=== PATIENT | female | born 1950 | race Hispanic/Latino ===

== ENCOUNTER → 2017-08-16 | Outpatient (CLI) | payer OTHER | END | disposition home or self-care (01) | LOC: RAH 08:02 | PROVIDERS: ATTEND Family Medicine | DX: Z12.31 Encounter for screening mammogram for malignant neoplasm of breast (principal) | CPT/HCPCS: 77067 ==

== ENCOUNTER → 2021-07-22 | Outpatient (CLI) | payer MEDICARE, OTHER | END | disposition home or self-care (01) | LOC: SHCH 08:18 | PROVIDERS: ATTEND Internal Medicine Cardiovascular Disease | DX: R07.9 Chest pain, unspecified (principal) | CPT/HCPCS: 93306 ==

== ENCOUNTER → 2022-06-01 | Outpatient (CLI) | payer MEDICARE ==
[2022-06-01 16:27] LABS: POTASSIUM 4.4 mmol/L (3.5-5.1)
== END | disposition home or self-care (01) ==
LOC: LAB 10:49
PROVIDERS: ATTEND Internal Medicine Cardiovascular Disease
DX: I10 Essential (primary) hypertension (principal); Z82.49 Family history of ischemic heart disease and other diseases of the circulatory system
CPT/HCPCS: 36415; 80048

== ENCOUNTER → 2022-06-08 | Outpatient (CLI) | payer MEDICARE ==
[~2022-06-08] MED LIST: IOHEXOL 350 MG/ML 100ML INFUS..BTL IV ONE
== END | disposition home or self-care (01) ==
LOC: RAH 07:53
PROVIDERS: ATTEND Internal Medicine Cardiovascular Disease
DX: I10 Essential (primary) hypertension (principal); R07.9 Chest pain, unspecified
CPT/HCPCS: 75574; Q9967

== ENCOUNTER → 2022-09-29 | Outpatient (CLI) | payer MEDICARE | END | disposition home or self-care (01) | LOC: SHCH 14:02 | PROVIDERS: ATTEND Internal Medicine Cardiovascular Disease | DX: I70.203 Unspecified atherosclerosis of native arteries of extremities, bilateral legs (principal); I87.2 Venous insufficiency (chronic) (peripheral) | CPT/HCPCS: 93925; 93970 ==

== ENCOUNTER 2022-11-15 12:28 | Emergency (ER) | payer MEDICARE ==
[~2022-11-15] VITALS: Ht 147.3 cm; Wt 56.2 kg
[2022-11-15 13:18] LABS: APPEARANCE,URINE CLEAR (CLEAR); BILIRUBIN,URINE NEGATIVE (NEGATIVE); COLOR,URINE COLORLESS (YELLOW); GLUCOSE, URINE (UA) NEGATIVE (NEGATIVE); KETONES,URINE NEGATIVE (NEGATIVE); LEUKOCYTE ESTERASE ,URINE NEGATIVE Leu/uL (NEGATIVE); NITRATE,URINE NEGATIVE (NEGATIVE); OCCULT BLOOD,URINE NEGATIVE (NEGATIVE); PH,URINE 7.5 (5.0-8.0); PROTEIN,URINE NEGATIVE (NEGATIVE); UROBILINOGEN,URINE 0.2 mg/dL (0.2-1.0)
[2022-11-15] MEDS ORDERED: ALBU90AE2 IH (14:01)
[2022-11-15] MEDS ORDERED: BENZ200C53 PO (14:01)
[2022-11-15 14:33] VITALS: BP 157/88
== END 2022-11-15 14:37 | disposition home or self-care (01) ==
LOC: EDH 12:28
DX: R06.00 Dyspnea, unspecified (principal); U09.9 Post COVID-19 condition, unspecified; Z88.1 Allergy status to other antibiotic agents; Z20.822 Contact with and (suspected) exposure to COVID-19
CPT/HCPCS: 99285; 71045; 87635; 87880; 87804 ×2; 81003; 93005; C9803

== ENCOUNTER 2023-08-20 05:53 | Observation (INO) | payer MEDICARE ==
[~2023-08-20] VITALS: Ht 149.9 cm; Wt 56.7 kg
[~2023-08-20 05:53] MED LIST changes: +ALBU90AE2 IH; +BENZ200C53 PO; -IOHEXOL 350 MG/ML 100ML INFUS..BTL IV ONE
[2023-08-20 06:23] LABS: HEMATOCRIT 45.6 % (36-48); MEAN CORPUSCULAR HEMOGLOBIN 30.7 pg (27.0-33.0); MEAN CORPUSCULAR HGB CONC 32.2 g/dL (32.0-36.0); MEAN CORPUSCULAR VOLUME 95.2 fL (79-99); NEUTROPHILS % (AUTO) 49.6 % (40.0-77.0); PLATELET COUNT (AUTO) 292 K/uL (130-400); RED BLOOD CELL COUNT(AUTO) 4.79 MIL/uL (4.00-5.50); WHITE BLOOD COUNT (AUTO) 8.7 K/uL (4.8-10.8)
[2023-08-20 06:24] LABS: BASOPHILS # (AUTO) 0.04 K/uL (0.00-0.20); BASOPHILS % (AUTO) 0.5 % (0.0-5.0); EOSINOPHILS # (AUTO) 0.33 K/uL (0.00-0.70); EOSINOPHILS % (AUTO) 3.8 % (0.0-8.0); IMMATURE GRANULOCYTE ABSOLUTE 0.04 K/uL (0-1); LYMPHOCYTES # (AUTO) 3.2 K/uL (1.0-4.8); LYMPHOCYTES % (AUTO) 36.2 % (21.0-51.0); MONOCYTES # (AUTO) 0.8 K/uL (0.1-1.0); MONOCYTES % (AUTO) 9.4 % (3.0-13.0); NEUTROPHILS # (AUTO) 4.3 K/uL (1.8-7.7)
[2023-08-20 06:44] LABS: INR <= 0.93 (0.85-1.15); PROTHROMBIN TIME 10.4 SEC (9.6-11.6)
[2023-08-20 07:08] LABS: ALBUMIN 3.5 g/dL (3.5-5.0); BILIRUBIN,TOTAL 0.2 mg/dL (0.2-1.0); CREATININE 0.9 mg/dL (0.5-1.0); POTASSIUM 4.7 mmol/L (3.5-5.1); TOTAL PROTEIN, SERUM 7.3 g/dL (6.0-8.3)
[2023-08-20 07:14] LABS: B-TYPE NATRIURETIC PEPTIDE 42 pg/mL (0-100)
[2023-08-20 07:21] LABS: APPEARANCE,URINE CLEAR (CLEAR); BILIRUBIN,URINE NEGATIVE (NEGATIVE); COLOR,URINE COLORLESS (YELLOW); GLUCOSE, URINE (UA) NEGATIVE (NEGATIVE); KETONES,URINE NEGATIVE (NEGATIVE); LEUKOCYTE ESTERASE ,URINE NEGATIVE Leu/uL (NEGATIVE); NITRATE,URINE NEGATIVE (NEGATIVE); OCCULT BLOOD,URINE NEGATIVE (NEGATIVE); PROTEIN,URINE NEGATIVE (NEGATIVE); UROBILINOGEN,URINE 0.2 mg/dL (0.2-1.0)
[2023-08-20 07:26] LABS: ADD UA MICROSCOPIC NO
[2023-08-20] MEDS ORDERED: LEVO25CA4 PO (08:50)
[2023-08-20] MEDS ORDERED: HYDR-4068 PO (08:50)
[2023-08-20] MEDS ORDERED: LIDO700A30 TP (08:50)
[2023-08-20] MEDS ORDERED: LACTULOSE 20 GM/30 ML UDCUP PO PRN (10:30)
[2023-08-20] MEDS ORDERED: NITROGLYCERIN 0.4 MG SL TAB SL PRN (10:30)
[2023-08-20] MEDS ORDERED: LOPERAMIDE HCL 2 MG CAP PO PRN (10:30)
[2023-08-20] MEDS ORDERED: ALBUTEROL 0.083% 2.5 MG/3 ML INH IH PRN (10:30)
[2023-08-20] MEDS ORDERED: POLYETHYLENE GLYCOL 3350 17 GM POWD.PACK PO PRN (10:30)
[2023-08-20] MEDS ORDERED: GUAIFENESIN SUGAR-FREE 100 MG/5 ML UDCUP PO PRN (10:30)
[2023-08-20] MEDS ORDERED: ACETAMINOPHEN 325 MG TAB PO PRN ×2 (10:30)
[2023-08-20] MEDS ORDERED: ARTIFICAL TEARS SOL 15 ML OP PRN (10:30)
[2023-08-20] MEDS ORDERED: DIPHENHYDRAMINE HCL 25 MG CAPSULE PO PRN (10:30)
[2023-08-20] MEDS ORDERED: BENZOCAINE/MENTH/CETYLPYRD CL 1 EACH LOZENGE MM PRN (10:30)
[2023-08-20] MEDS ORDERED: ONDANSETRON 4MG INJ IV PRN (10:30)
[2023-08-20] MEDS ORDERED: ALPRAZOLAM 0.5 MG TABLET PO PRN (10:30)
[2023-08-20] MEDS ORDERED: DOCUSATE SODIUM 100 MG CAP PO PRN (10:30)
[2023-08-20] MEDS ORDERED: MAG/ALUM/SIMETH 30 ML UDCUP PO PRN (10:30)
[2023-08-20] MEDS ORDERED: HYDRALAZINE 25MG TABLET PO PRN (10:30)
[2023-08-20] MEDS ORDERED: LIDOCAINE 5% TOPICAL PATCH TP PRN (11:00)
[2023-08-20 11:23] LABS: CREATINE KINASE, TOTAL 79 U/L (21-232)
[2023-08-20] MEDS ORDERED: TIMO1DRO9 OP (12:00)
[2023-08-20] MEDS ORDERED: CYCL1DRO14 OP (12:00)
[2023-08-20 13:57] VITALS: PULSE 66; RESP 18; O2SAT 96
[2023-08-20] MEDS ORDERED: LABETALOL 20MG VIAL IV PRN (14:00)
[2023-08-20] MEDS ORDERED: HYDRALAZINE 20MG/ML VIAL IV PRN (14:00)
[2023-08-20] MEDS: KETOROLAC 15MG/ML VIAL (15MG/ML) IM SCH (14:11)
[2023-08-20 14:20] VITALS: O2SAT 99
[2023-08-20 16:00] VITALS: BP 117/74; PULSE 91; RESP 17
[2023-08-20] MEDS ORDERED: IOHEXOL 350 MG/ML 100ML INFUS..BTL IV ONE (17:09)
[2023-08-20 18:54] LABS: CREATINE KINASE, TOTAL 60 U/L (21-232)
[2023-08-20 20:00] VITALS: O2SAT 98
[2023-08-20 20:25] VITALS: BP 112/68; PULSE 65; RESP 16
[2023-08-20] MEDS: HYDROCODONE/ACETAMINOPHEN 10/325 MG TAB PO SCH (21:00)
[2023-08-20] MEDS: FAMOTIDINE 20MG TAB PO SCH (21:22)
[2023-08-20] MEDS: LOSARTAN 50 MG TABLET PO SCH (21:23)
[2023-08-20] MEDS: ZOLPIDEM TARTRATE 5 MG TAB PO PRN (21:28)
[2023-08-20 23:30] VITALS: BP 93/54; PULSE 58; RESP 16
[2023-08-21 03:47] LABS: HEMATOCRIT 37.3 % (36-48); MEAN CORPUSCULAR HEMOGLOBIN 31.4 pg (27.0-33.0); MEAN CORPUSCULAR HGB CONC 33.2 g/dL (32.0-36.0); MEAN CORPUSCULAR VOLUME 94.4 fL (79-99); RED BLOOD CELL COUNT(AUTO) 3.95 MIL/uL (4.00-5.50); RED CELL DISTRIBUTION WIDTH 13.2 % (11.0-15.5); WHITE BLOOD COUNT (AUTO) 9.4 K/uL (4.8-10.8)
[2023-08-21 03:56] LABS: CREATININE 0.8 mg/dL (0.5-1.0); POTASSIUM 4.2 mmol/L (3.5-5.1)
[2023-08-21 04:03] LABS: HEMOGLOBIN A1C 5.8 % (4.0-6.0)
[2023-08-21 04:08] VITALS: BP 98/59; PULSE 62; RESP 16
[2023-08-21 04:09] LABS: MAGNESIUM 2.1 mg/dL (1.80-2.40); PHOSPHORUS 4.5 mg/dL (2.5-4.9); THYROID STIMULATING HORMONE 1.2 uIU/mL (0.36-3.74)
[2023-08-21] MEDS: LEVOTHYROXINE 25 MCG TABLET PO SCH (05:50)
[2023-08-21 08:00] VITALS: BP 135/84; PULSE 87; RESP 16
[2023-08-21] MEDS: ENOXAPARIN SODIUM 40 MG/0.4 ML SYRINGE SQ SCH (09:51)
[2023-08-21] MEDS: LOSARTAN 25 MG TABLET PO ONE (10:44)
[2023-08-21 11:02] LABS: APPEARANCE,URINE CLOUDY (CLEAR); BILIRUBIN,URINE NEGATIVE (NEGATIVE); COLOR,URINE COLORLESS (YELLOW); GLUCOSE, URINE (UA) NEGATIVE (NEGATIVE); KETONES,URINE NEGATIVE (NEGATIVE); LEUKOCYTE ESTERASE ,URINE 500 Leu/uL (NEGATIVE); NITRATE,URINE NEGATIVE (NEGATIVE); OCCULT BLOOD,URINE LARGE (NEGATIVE); PROTEIN,URINE NEGATIVE (NEGATIVE); UROBILINOGEN,URINE 0.2 mg/dL (0.2-1.0)
[2023-08-21 11:14] LABS: ADD UA MICROSCOPIC YES
[2023-08-21 11:18] LABS: BACTERIA,URINE RARE /HPF (None Seen); MUCUS,URINE RARE LPF (None Seen); RBC,URINE 0-1 /HPF (0-1); TRANSITIONAL EPI CELLS,URINE RARE /HPF (None Seen); WBC CLUMP MOD /HPF (0-1); WBC,URINE TNTC /HPF (0-1)
[2023-08-21 11:59] VITALS: BP 137/52; PULSE 57; RESP 15
[2023-08-21 12:00] VITALS: BP 137/52; PULSE 57; RESP 15
[2023-08-21 13:30] VITALS: O2SAT 98
[2023-08-21] MEDS ORDERED: CEPH500C2 PO (13:36)
[2023-08-21] MEDS ORDERED: LOSA-417 PO (13:38)
[2023-08-21] MEDS ORDERED: LOSARTAN 25 MG TABLET PO SCH (21:00)
== END 2023-08-21 15:45 | disposition home or self-care (01) ==
LOC: EDH 05:53 → EDHIP 10:27 → 4DH 14:20
PROVIDERS: ADMIT Internal Medicine Critical Care Medicine; ATTEND Internal Medicine Critical Care Medicine
DX: I16.1 Hypertensive emergency (principal); R07.89 Other chest pain; M41.9 Scoliosis, unspecified; G89.29 Other chronic pain; M54.9 Dorsalgia, unspecified; K57.92 Diverticulitis of intestine, part unspecified, without perforation or abscess without bleeding; M19.90 Unspecified osteoarthritis, unspecified site; I71.21 Aneurysm of the ascending aorta, without rupture; Z88.1 Allergy status to other antibiotic agents; Z90.710 Acquired absence of both cervix and uterus; Z90.49 Acquired absence of other specified parts of digestive tract; Z86.2 Personal history of diseases of the blood and blood-forming organs and certain disorders involving the immune mechanism; Z79.899 Other long term (current) drug therapy
CPT/HCPCS: 96372 ×3; 99285; 82550 ×4; 84484 ×4; 80053; 83880; 85025; 85378; 85610; 85730; 81003; 36415 ×2; 71045; 71270; 93005 ×2; 83036; 84443; 83735; 84100; 80048; 85027; 87077; 87088; 87186; 81001; 93306; 97161; 84145; G0378 ×29; J1885 ×4; Q9967; J1650

== ENCOUNTER → 2024-03-28 | Outpatient (CLI) | payer MEDICARE ==
[~2024-03-28] MED LIST changes: -ALBU90AE2 IH; -BENZ200C53 PO; +CEPH500C2 PO; +CYCL1DRO14 OP; +HYDR-4068 PO; +LEVO25CA4 PO; +LIDO700A30 TP; +LOSA-417 PO; +TIMO1DRO9 OP
--- NOTE | 2024-03-28 11:20 | HMCIMG ---
CHEST 2VWS HISTORY: Shortness of breath COMPARISON: 08/20/2023 FINDINGS: Frontal and lateral projections of the chest were obtained. There is no acute pulmonary infiltrates or failure. The heart is not enlarged. No evidence of aortic calcification is seen. There is dextroscoliosis. Degenerative changes are seen of the thoracolumbar spine. IMPRESSION: 1. No acute pulmonary infiltrates.
== END | disposition home or self-care (01) ==
LOC: RAH 10:28
PROVIDERS: ATTEND Family Medicine
DX: R06.02 Shortness of breath (principal); M47.815 Spondylosis without myelopathy or radiculopathy, thoracolumbar region; M41.84 Other forms of scoliosis, thoracic region
CPT/HCPCS: 71046

== ENCOUNTER 2024-04-03 11:38 | Emergency (ER) | payer MEDICARE ==
[~2024-04-03] VITALS: Ht 147.3 cm; Wt 59.0 kg
--- NOTE | 2024-04-03 12:02 | EKG ---
[facility] Test Date: 2024-04-03 Test Time: 11:57:26 Pat Name: NELLIE HOU Department: ED Room: Gender: F Design Consultant: [id number] : 1950 Requested By: MARLEY LOPEZ Order Number: [id number] Reading MD: Richar Albarado Measurements Intervals [place] Rate: 75 P: 59 SD: 164 QRS: -16 QRSD: 79 T: 71 QT: 383 QTc: 429 Interpretive Statements Sinus rhythm Compared to ECG 08/20/2023 10:34:24 No significant changes Electronically Signed On 04-04-2024 19:31:55 CASE SUPERVISOR by Richar Albarado Please click the below link to view image of tracing.
[2024-04-03 12:25] LABS: APPEARANCE,URINE CLEAR (CLEAR); BILIRUBIN,URINE NEGATIVE (NEGATIVE); COLOR,URINE COLORLESS (YELLOW); GLUCOSE, URINE (UA) NEGATIVE (NEGATIVE); KETONES,URINE NEGATIVE (NEGATIVE); LEUKOCYTE ESTERASE ,URINE NEGATIVE Leu/uL (NEGATIVE); NITRATE,URINE NEGATIVE (NEGATIVE); OCCULT BLOOD,URINE NEGATIVE (NEGATIVE); PROTEIN,URINE NEGATIVE (NEGATIVE); UROBILINOGEN,URINE 0.2 mg/dL (0.2-1.0)
[2024-04-03 12:25] LABS: BASOPHILS # (AUTO) 0.04 K/uL (0.00-0.20); BASOPHILS % (AUTO) 0.4 % (0.0-5.0); EOSINOPHILS % (AUTO) 1.9 % (0.0-8.0); HEMATOCRIT 43.7 % (36-48); IMMATURE GRANULOCYTE ABSOLUTE 0.05 K/uL (0-1); LYMPHOCYTES # (AUTO) 2.1 K/uL (1.0-4.8); LYMPHOCYTES % (AUTO) 19.5 % (21.0-51.0); MEAN CORPUSCULAR HEMOGLOBIN 30.6 pg (27.0-33.0); MEAN CORPUSCULAR VOLUME 95.6 fL (79-99); MONOCYTES # (AUTO) 0.8 K/uL (0.1-1.0); MONOCYTES % (AUTO) 7.5 % (3.0-13.0); NEUTROPHILS # (AUTO) 7.5 K/uL (1.8-7.7); NEUTROPHILS % (AUTO) 70.2 % (40.0-77.0); PLATELET COUNT (AUTO) 291 K/uL (130-400); RED BLOOD CELL COUNT(AUTO) 4.57 MIL/uL (4.00-5.50); RED CELL DISTRIBUTION WIDTH 12.7 % (11.0-15.5); WHITE BLOOD COUNT (AUTO) 10.6 K/uL (4.8-10.8)
[2024-04-03 12:30] LABS: CREATININE 0.9 mg/dL (0.5-1.0); POTASSIUM 4.1 mmol/L (3.5-5.1)
[2024-04-03 12:31] LABS: ADD UA MICROSCOPIC NO
[2024-04-03 12:46] LABS: B-TYPE NATRIURETIC PEPTIDE 40 pg/mL (0-100)
[2024-04-03 12:52] VITALS: O2SAT 97
--- NOTE | 2024-04-03 13:33 | HMCIMG ---
CT CERVICAL SPINE W/O CONTRAST REASON: headache s/p fall COMPARISON: None TECHNIQUE: Images are obtained from skull base to the upper thoracic spine in the axial plane. Sagittal and coronal reconstruction images were then performed. FINDINGS: There are normal appearing vertebral bodies. There is severe degenerative narrowing at C4-5, 5 6 and C6-7. There is reversal of normal curvature. There is 3 mm anterior subluxation of C3 on C4. Alignment appears otherwise unremarkable. There are mild degenerative changes in the facets. Central spinal canal appears preserved. There is no evidence of stenosis. Stranding soft tissues appear unremarkable. There is no evidence of fracture or subluxation. Soft tissues appear normal as well. IMPRESSION: 1. Severe spondylosis at C4-5, C5-6 and C6-[address] was performed with one or more following dose reduction techniques: automated exposure control, adjustment of the mA and kv according to patient's size, or use of a iterative reconstruction technique.
--- NOTE | 2024-04-03 13:33 | HMCIMG ---
Exam: NONCONTRAST CT BRAIN REASON: headache s/p fall. COMPARISON: None. TECHNIQUE: Images are obtained from vertex to the skull base. The exam was performed without IV contrast. FINDINGS: There is normal appearing brain parenchyma. There are no focal mass lesions. There is is no evidence of intracranial hemorrhage or acute stroke. Ventricles and sulci appear normal. Posterior fossa and brainstem structures are unremarkable. Paranasal sinuses and remaining extracranial soft tissues appear normal as well. IMPRESSION: 1. Normal noncontrast CT brain. CT was performed with one or more following dose reduction techniques: automated exposure control, adjustment of the mA and kv according to patient's size, or use of a iterative reconstruction technique.
[2024-04-03] MEDS: ondanSETRON 4MG INJ IVP ONE (13:39)
[2024-04-03] MEDS: morPHINE 2 MG SYG IVP ONE (13:39)
[2024-04-03 14:18] VITALS: BP 149/80; PULSE 82; RESP 20; TEMP 97.5
--- NOTE | 2024-04-03 14:23 | HMCIMG ---
ELBOW COMP 3+VWS LT REASON: pain/ mechanical ground level fall TECHNIQUE: 3 views were obtained. FINDINGS: There is irregularity of the neck of the radius which may represent a nondisplaced fracture. There is a positive joint effusion with anterior and posterior fat-pad sign. Distal humerus appears intact as does the ulna. IMPRESSION: 1. Nondisplaced fracture proximal radius with positive joint effusion.
--- NOTE | 2024-04-03 14:24 | HMCIMG ---
SHOULDER COMP 2+VWS LT REASON: pain/ mechanical ground level fall TECHNIQUE: 3 views were obtained. FINDINGS: There is no evidence of fracture or dislocation. There is no joint effusion. The soft tissues appear unremarkable. There is no evidence of a radiopaque foreign body. IMPRESSION: No acute findings.
--- NOTE | 2024-04-03 14:25 | HMCIMG ---
HUMERUS 2+VWS LT REASON: pain/ mechanical ground level fall TECHNIQUE: 2 views were obtained. FINDINGS: There is no evidence of fracture or dislocation. There is no joint effusion. The soft tissues appear unremarkable. There is no evidence of a radiopaque foreign body. IMPRESSION: No acute findings.
--- NOTE | 2024-04-03 14:48 | ERN ---
General Chief Complaint: Mechanical Fall Stated Complaint: FALL,HURT LT ARM Time Seen by MD: 11:43 Time Seen by Midlevel: 11:43 Source: patient History of Present Illness Initial Comments Patient is a 73-year-old female presenting to the emergency department following a mechanical ground level fall. Patient states she accidentally slipped and fell onto her left side. She does report hitting the left occipital part of her head and reports a headache. She has pain to her left shoulder left upper arm and left elbow. Denies any loss of consciousness. Denies being on blood thinners. Denies any other symptoms at this time. Allergies: Coded Allergies: levofloxacin (Unverified Allergy, Unknown, 08/20/23) Home Meds Active Scripts Losartan Potassium (Cozaar) 25 Mg Tablet, 25 MG PO BID for 30 Days, #60 TAB Prov:LOLIS KEITH N ROOFING APPLICATOR 08/21/23 Cephalexin (Cephalexin) 500 Mg Capsule, 500 MG PO BID for 7 Days, #14 CAP Prov:LOLIS KEITH N ROOFING APPLICATOR 08/21/23 Reported Medications Timolol Maleate/Pf (Timolol Maleate 0.5% Eye Drop) 0.5 % Droperette, 1 EACH OP HS, DROP 08/20/23 Cyclosporine (Cyclosporine) 0.05 % Droperette, 1 EACH OP BID, DROP 08/20/23 Lidocaine (Lidocaine) 5 % Adh..patch, 1 EACH TP [id number] PRN for PAIN LEVEL 1 TO 5, ADH.PATCH 08/20/23 Hydrocodone/Acetaminophen (Hydrocodon-Acetaminophn 10-325) 10 Mg-325 Mg Tablet, 1 EACH PO BID, TAB 08/20/23 Levothyroxine Sodium (Levothyroxine) 25 Mcg Capsule, 25 MCG PO DAILY, CAP 08/20/23 Past Medical History Past Medical History: Arthritis Medical History Other: SCOLIOSIS, CHRONIC NECK PAIN Past Surgical History: Appendectomy, Hysterectomy, Cholecystectomy, Other Surgical History Other: COLON RESECTION, ROS Dictation CONSTITUTIONAL: Negative except for HPI HEAD/FACE: Negative except for HPI EENT: Negative except for HPI RESPIRATORY: Negative except for HPI GASTROINTESTINAL/ABDOMINAL: Negative except for HPI GENITOURINARY: Negative except for HPI MUSCULOSKELETAL: Negative except for HPI INTEGUMENTARY: Negative except for HPI NEUROLOGICAL/PSYCH: Negative except for HPI HEMATOLOGIC/LYMPHATIC: Negative except for HPI All Systems Negative, Except as noted above. 13 point review of systems assessed and all negative except for above. Physical Exam Physical Exam Dictation Vital Signs reviewed General Appearance: Alert, oriented x 3, no acute distress, well developed, nourished. Head and Face: Tenderness over the left occipital, no obvious signs of deformity, no depressed skull fracture, no crepitus Eyes: PERRL, pink conjunctivas, eyelid no trauma, anterior chamber with arcus senilis. Ears: Pinnas intact and no signs of trauma or erythema ear canals clear and no discharge TM no erythema Nose: No discharge, no bleeding. Oropharynx: Mouth normal, tongue pink, pharynx clear,no erythema, tonsils no exudates, no abscesses noted, mucous membrane moist Neck: Supple, non-tender, no thyromegaly, no masses, no JVD, no bruits Breast:Deferred Chest:No tenderness, no crepitus, no paradoxical movement, no retractions Lungs:Clear, well-ventilated, symmetric, no rales, no wheezing, no rhonchi, no stridor, good breath sounds bilaterally Heart: Regular rate, regular rhythm, no murmur, no gallops Vascular: no peripheral edema, Abdomen: Soft, positive bowel sounds, nondistended, no guarding, nontender, no rebound, no masses no hepatomegaly, no splenomegaly, no Patel's sign, no hernias. Rectal: Deferred Genital: Deferred Neurological: Normal speech, motor function intact, sensory function intact Musculoskeletal: Neck nontender, full range of motion, back nontender, full range of motion, Extremities: Tenderness over the left shoulder, left humerus, and left elbow. Left elbow range of motion is restricted secondary to pain, left upper extremity is neurovascularly intact with normal capillary refill, radial pulses intact Skin: Color pink, dry, no turgor, no rash, no lacerations, no abrasions, no contusions. Lymphatic: Deferred Results Laboratory and Microbiology Lab and Micro Result Laboratory Tests Test 04/03/24 12:15 04/03/24 12:17 Urine Color COLORLESS (YELLOW) Urine Appearance CLEAR (CLEAR) Urine pH 7.0 (5.0-8.0) Urine Specific [place] 1.002 (1.001-1.031) Urine Protein NEGATIVE mg/dL (NEGATIVE) Urine Glucose (UA) NEGATIVE mg/dL (NEGATIVE) Urine Ketones NEGATIVE mg/dL (NEGATIVE) Urine Occult Blood NEGATIVE (NEGATIVE) Urine Nitrate NEGATIVE (NEGATIVE) Urine Bilirubin NEGATIVE mg/dL (NEGATIVE) Urine Urobilinogen 0.2 mg/dL (0.2-1.0) Urine Leukocyte Esterase NEGATIVE [place]/uL White Blood Count 10.6 K/uL (4.8-10.8) Red Blood Count 4.57 MIL/uL (4.00-5.50) Hemoglobin 14.0 g/dL (12.0-16.0) Hematocrit 43.7 % (36-48) Mean Corpuscular Volume 95.6 fL (79-99) Mean Corpuscular Hemoglobin 30.6 pg (27.0-33.0) Mean Corpuscular Hemoglobin Concent 32.0 g/dL (32.0-36.0) Red Cell Distribution Width 12.7 % (11.0-15.5) Platelet Count 291 K/uL (130-400) Mean Platelet Volume 9.2 fL (7.5-10.5) Immature Granulocyte % (Auto) 0.5 % (0-1) Neutrophils (%) (Auto) 70.2 % (40.0-77.0) Lymphocytes (%) (Auto) 19.5 % (21.0-51.0) L Monocytes (%) (Auto) 7.5 % (3.0-13.0) Eosinophils (%) (Auto) 1.9 % (0.0-8.0) Basophils (%) (Auto) 0.4 % (0.0-5.0) Neutrophils # (Auto) 7.5 K/uL (1.8-7.7) Lymphocytes # (Auto) 2.1 K/uL (1.0-4.8) Monocytes # (Auto) 0.8 K/uL (0.1-1.0) Eosinophils # (Auto) 0.20 K/uL (0.00-0.70) Basophils # (Auto) 0.04 K/uL (0.00-0.20) Absolute Immature Granulocyte (auto 0.05 K/uL (0-1) Nucleated Red Blood Cells 0.0 % (0.0-0.19) Sodium Level 144 mmol/L (136-145) Potassium Level 4.1 mmol/L (3.5-5.1) Chloride Level 104 mmol/L (101-111) Carbon Dioxide Level 31 mmol/L (21-32) Blood Urea Nitrogen 12 mg/dL (7-18) Creatinine 0.9 mg/dL (0.5-1.0) Glomerular Filtration Rate Calc 67 mL/min (>90) Random Glucose 102 mg/dL (70-105) Total Calcium 10.2 mg/dL (8.5-10.1) H Total Creatine Kinase 89 U/L (21-232) # Troponin I High Sensitivity 9 ng/L (4-50) B-Type Natriuretic Peptide 40 pg/mL (0-100) Labs Reviewed?: Yes MDM MDM: Patient is a 73-year-old female presenting to the emergency department following a mechanical ground level fall. Patient states she accidentally slipped and fell onto her left side. She does report hitting the left occipital part of her head and reports a headache. She has pain to her left shoulder left upper arm and left elbow. Denies any loss of consciousness. Denies being on blood thinners. Denies any other symptoms at this time. On physical examination patient has tenderness over the left occipital scalp however there was no obvious signs of deformity or depressed skull fracture. Range of motion of the left elbow was restricted secondary to pain however left upper extremity is neurovascularly intact. She has normal capillary refill with good radial pulse. Patient was able to make a fist with her left hand. She has tenderness over her left shoulder and range of motion is restricted secondary to pain. There are no obvious signs deformity to the left upper extremity. When she arrived patient was found to have a blood pressure of over 200 systolic. A full cardiac workup was initiated along with a CT scan of the head and neck to rule out any acute injury. Her CBC and chemistries unremarkable. Her cardiac enzymes are negative. Her EKG is normal. Her CT scan of the head and neck are negative for any acute injury. Her x-ray of the left shoulder, humerus are negative for any acute fracture. Her left elbow does show a nondisplaced proximal radius fracture with joint effusion. Patient was placed on a posterior long-arm splint and advised to follow up with orthopedic surgeon outpatient. The initial blood pressure of over 200 systolic was most likely attributed to the patient's pain. Patient was given 2 mg of morphine IV. Repeat blood pressure was in the 130 systolic. Patient remained asymptomatic. Patient was advised to follow up with your primary care doctor in 2-3 days for repeat evaluation and possible outpatient evaluation of hypertension. Return precautions were discussed. Patient is stable for discharge at this time Differential diagnosis: Closed head injury, intracranial bleed, skull fracture, dislocation, fracture There are no social concerns with this patient. Prescription drug management Prescriptions will include: None Medical management and examination interpretation discussions were had by me with other qualified healthcare professionals as indicated for the patient's care. ED Course Orders Procedure Category Date Status Time Shoulder Comp 2+Vws Lt RAD 04/03/24 Resulted 11:57 Humerus 2+Vws Lt RAD 04/03/24 Resulted 11:57 Elbow Comp 3+Vws Lt RAD 04/03/24 Resulted 11:57 Morphine 2mg Syg PHA 04/03/24 Complete (Morphine 2mg Syg) 12:00 Ondansetron 4mg Inj PHA 04/03/24 Complete (Zofran 4mg Inj) 12:00 12 Lead Ekg Tracing- EKG 04/03/24 Complete Technical 11:59 Cbc With Differential LAB 04/03/24 Complete 12:08 Basic Metabolic Panel LAB 04/03/24 Complete 12:08 Troponin I High LAB 04/03/24 Complete Sensitivity 12:08 B-Type Natriuretic LAB 04/03/24 Complete Peptide 12:08 Creatine Kinase, Total LAB 04/03/24 Complete 12:08 Ct Head/Brain W/O CT 04/03/24 Resulted Contrast 12:08 Ct Cervical Spine W/O CT 04/03/24 Resulted Contrast 12:08 Urinalysis Profile LAB 04/03/24 Complete 12:17 *Nursing CPOE 04/03/24 Transmitted Communication: 15:41 Current Medications Medications (Trade) Dose Ordered Sig/Fidel Route PRN Reason Start Time Stop Time Status Last Admin Dose Admin Morphine Sulfate (morPHINE 2MG SYG) 2 mg ONCE ONCE IVP 04/03/24 12:00 04/03/24 12:01 DC 04/03/24 13:39 Ondansetron HCl (zoFRAN 4MG INJ) 4 mg ONCE ONCE IVP 04/03/24 12:00 04/03/24 12:01 DC 04/03/24 13:39 Vital Signs Date Time Temp Pulse Resp B/P (MAP) Pulse Ox O2 Delivery O2 Flow Rate FiO2 04/03/24 14:18 97.5 82 20 149/80 Room Air* 0 21 04/03/24 12:52 97.5 85 20 201/97 97 Room Air* 0 21 04/03/24 11:55 97.5 85 20 201/97 Room Air [place] [address] [address] IMAGING REPORT Signed PATIENT: NELLIE HOU MR#: [id number] : 1950 SEX: F AGE: 73 LOCATION: ED ORDER 08 STATUS: REG ER REPORT#: [id number] SERVICE 07 REASON: headache s/p fall ORDERING PHYSICIAN: WALDO ACE PROCEDURE: HEAD WO - CT HEAD/BRAIN W/O CONTRAST Exam: NONCONTRAST CT BRAIN REASON: headache s/p fall. COMPARISON: None. TECHNIQUE: Images are obtained from vertex to the skull base. The exam was performed without IV contrast. FINDINGS: There is normal appearing brain parenchyma. There are no focal mass lesions. There is is no evidence of intracranial hemorrhage or acute stroke. Ventricles and sulci appear normal. Posterior fossa and brainstem structures are unremarkable. Paranasal sinuses and remaining extracranial soft tissues appear normal as well. IMPRESSION: 1. Normal noncontrast CT brain. CT was performed with one or more following dose reduction techniques: automated exposure control, adjustment of the mA and kv according to patient's size, or use of a iterative reconstruction technique. DICTATED BY: LAY YA MD DATE: 04/03/241330 ELECTRONICALLY SIGNED BY: LAY YA MD DATE: 04/03/241332 [address] [id number] IMAGING REPORT Signed PATIENT: NELLIE HOU MR#: [id number] : 1950 SEX: F AGE: 73 LOCATION: ED ORDER 08 STATUS: REG ER [facility] REPORT#: [id number] SERVICE 07 REASON: headache s/p fall ORDERING PHYSICIAN: WALDO ACE PROCEDURE: C SPIN WO - CT CERVICAL SPINE W/O CONTRAST CT CERVICAL SPINE W/O CONTRAST REASON: headache s/p fall COMPARISON: None TECHNIQUE: Images are obtained from skull base to the upper thoracic spine in the axial plane. Sagittal and coronal reconstruction images were then performed. FINDINGS: There are normal appearing vertebral bodies. There is severe degenerative narrowing at C4-5, 5 6 and C6-7. There is reversal of normal curvature. There is 3 mm anterior subluxation of C3 on C4. Alignment appears otherwise unremarkable. There are mild degenerative changes in the facets. Central spinal canal appears preserved. There is no evidence of stenosis. Stranding soft tissues appear unremarkable. There is no evidence of fracture or subluxation. Soft tissues appear normal as well. IMPRESSION: 1. Severe spondylosis at C4-5, C5-6 and C6-[address] was performed with one or more following dose reduction techniques: automated exposure control, adjustment of the mA and kv according to patient's size, or use of a iterative reconstruction technique. DICTATED BY: LAY YA MD DATE: 04/03/241327 ELECTRONICALLY SIGNED BY: LAY YA MD DATE: 04/03/24 [address] [place] [address] IMAGING REPORT Signed PATIENT: NELLIE HOU MR#: [id number] : 1950 SEX: F AGE: 73 LOCATION: [facility] ORDER 115 STATUS: REG REPORT#: [id number] SERVICE 1157 REASON: pain/ mechanical ground level fall ORDERING PHYSICIAN: WALDO ACE PROCEDURE: SHOL 2V LT - SHOULDER COMP 2+VWS LT SHOULDER COMP 2+VWS LT REASON: pain/ mechanical ground level fall TECHNIQUE: 3 views were obtained. FINDINGS: There is no evidence of fracture or dislocation. There is no joint effusion. The soft tissues appear unremarkable. There is no evidence of a radiopaque foreign body. IMPRESSION: No acute findings. DICTATED BY: LAY YA MD DATE: 04/03/241420 ELECTRONICALLY SIGNED BY: LAY YA MD DATE: 04/03/241423 [address] [address] IMAGING REPORT Signed PATIENT: NELLIE HOU MR#: [id number] : 1950 SEX: F AGE: 73 LOCATION: [facility] ORDER 58 STATUS: REG ER [facility]OS[facility]ITAL REPORT#: [id number] SERVICE 56 REASON: pain/ mechanical ground level fall ORDERING PHYSICIAN: WALDO ACE PROCEDURE: HUM 2V LT - HUMERUS 2+VWS LT HUMERUS 2+VWS LT REASON: pain/ mechanical ground level fall TECHNIQUE: 2 views were obtained. FINDINGS: There is no evidence of fracture or dislocation. There is no joint effusion. The soft tissues appear unremarkable. There is no evidence of a radiopaque foreign body. IMPRESSION: No acute findings. DICTATED BY: LAY YA MD DATE: 04/03/241421 ELECTRONICALLY SIGNED BY: LAY YA MD DATE: 04/03/241424 [address] [id number] IMAGING REPORT Signed PATIENT: NELLIE HUO MR#: [id number] : 1950 SEX: F AGE: 73 LOCATION: ED ORDER 58 STATUS: REG ER HOSPITAL REPORT#: [id number] SERVICE 56 REASON: pain/ mechanical ground level fall ORDERING PHYSICIAN: WALDO ACE PROCEDURE: ELB3VW LT - ELBOW COMP 3+VWS LT ELBOW COMP 3+VWS LT REASON: pain/ mechanical ground level fall TECHNIQUE: 3 views were obtained. FINDINGS: There is irregularity of the neck of the radius which may represent a nondisplaced fracture. There is a positive joint effusion with anterior and posterior fat-pad sign. Distal humerus appears intact as does the ulna. IMPRESSION: 1. Nondisplaced fracture proximal radius with positive joint effusion. DICTATED BY: LAY YA MD DATE: 04/03/241419 ELECTRONICALLY SIGNED BY: LAY YA MD DATE: 04/03/24 1423 DX & DISP Disposition: Discharge Departure Impression: Primary Impression: Fall Additional Impressions: Contusion of left shoulder, Fracture, radius, proximal Condition: Stable Additional Instructions: Your blood work today is unremarkable. When you arrived to the emergency department your blood pressure was over 200 systolic. Given these blood pressure findings we initiated a full workup which included an EKG and blood work. A CT scan of the head and neck were obtained and are negative for any injury. Your x-ray of the left shoulder, and left upper arm are negative for any acute fracture. Your cardiac enzymes are negative. Your EKG is normal. Your repeat blood pressure has improved significantly. Your elevated blood pressure was most likely attributed to the pain following your fall however I suggest he follow up with your primary care doctor in 2-3 days for repeat evaluation. If you develop any new or worsening symptoms please report to the emergency department for further evaluation. Your left elbow x-ray does show a fracture. You will need to follow up with orthopedic surgeon outpatient. Please follow up tomorrow between 9:00 a.m. and 12:[address] Burton's office. Referrals: FREIDA ADAMS MD (PCP) ATIF BURTON MD Time of Disposition: 14:46 I have reviewed the case, and I agree with, Diagnosis and Plan I performed the substantive portion of the visit. I have reviewed and personally made and approve the management plan that is documented in the note by myself or the SANJAY. I acknowledge for responsibility for the patient's management plan. WALDO ACE Apr 03, 2024 14:48 MARLEY LOPEZ DO Apr 04, 2024 07:24
== END 2024-04-03 15:03 | disposition home or self-care (01) ==
LOC: EDH 11:38
DX: S52.102A Unspecified fracture of upper end of left radius, initial encounter for closed fracture (principal); S40.012A Contusion of left shoulder, initial encounter; Z79.621 Long term (current) use of calcineurin inhibitor; Z79.890 Hormone replacement therapy; Z88.1 Allergy status to other antibiotic agents; Z90.49 Acquired absence of other specified parts of digestive tract; Z90.710 Acquired absence of both cervix and uterus; W01.0XXA Fall on same level from slipping, tripping and stumbling without subsequent striking against object, initial encounter; Y93.89 Activity, other specified; Y92.89 Other specified places as the place of occurrence of the external cause; Y99.8 Other external cause status
CPT/HCPCS: 99285; 70450; 96374; 29105; 96375; 82550; 84484; 80048; 83880; 85025; 81003; 36415; 73080; 73060; 73030; 72125; 93005; J2270; J2405

== ENCOUNTER 2024-06-04 22:59 | Emergency (ER) | payer MEDICARE ==
[~2024-06-04] VITALS: Ht 149.9 cm; Wt 59.0 kg
--- NOTE | 2024-06-04 23:19 | ERN ---
ED Note History of Present Illness Stated Complaint: HYPERTENSION, CP Chief Complaint: Hypertension Time Seen by MD: 23:04 Dictation: This is a 74-year-old female who presented to the emergency room with complaints of generalized weakness chest discomfort and episode of hypertension at home. Ms. Galeana is not on any antihypertensives at home and reported that she has had episodes of hypertensive emergency and at 1 time she was given losartan for 30 or 40 days. Primary care physician re-evaluated her and felt that she did not need any antihypertensives as her blood pressure was well controlled and and likely the the severe neck pain might have triggered the hypertension. Since then she has maintained a log of the blood pressure and her average blood pressures have been ranging from 150s to 160 systolic. She denied any blurred vision diplopia motor weakness or seizure activity but she states that before she checks her blood pressure she usually has a severe warmth feeling in the body. She reports multiple complaints including severe chronic neck pain interfering with sleep and she was quite tearful that she has not slept in 4 days. Temperature 97.8 pulse 76 respirations 18 blood pressure 188/78 with a pulse oximetry of 100% on room air Her chronic medical problems include chronic neck pain, arthritis, colonic resection probably for chronic constipation and obstruction, hypertension, hypothyroidism Allergies: Coded Allergies: levofloxacin (Unverified Allergy, Unknown, 08/20/23) Home Meds Active Scripts Eszopiclone (Eszopiclone) 2 Mg Tablet, 1 TAB PO HSPRN PRN for sleep for 30 Days, #30 TAB 0 Refills Prov:NEVA PADRON MD 06/05/24 Lisinopril (Lisinopril) 10 Mg Tablet, 1 TAB PO DAILY for 30 Days, #30 TAB 0 Refills Prov:NEVA PADRON MD 06/05/24 Losartan Potassium (Cozaar) 25 Mg Tablet, 25 MG PO BID for 30 Days, #60 TAB Prov:LOLIS KEITH EMERGENCY DOCTOR 08/21/23 Cephalexin (Cephalexin) 500 Mg Capsule, 500 MG PO BID for 7 Days, #14 CAP Prov:LOLIS KEITH EMERGENCY DOCTOR 08/21/23 Reported Medications Timolol Maleate/Pf (Timolol Maleate 0.5% Eye Drop) 0.5 % Droperette, 1 EACH OP HS, DROP 08/20/23 Cyclosporine (Cyclosporine) 0.05 % Droperette, 1 EACH OP BID, DROP 08/20/23 Lidocaine (Lidocaine) 5 % Adh..patch, 1 EACH TP [id number] PRN for PAIN LEVEL 1 TO 5, ADH.PATCH 08/20/23 Hydrocodone/Acetaminophen (Hydrocodon-Acetaminophn 10-325) 10 Mg-325 Mg Tablet, 1 EACH PO BID, TAB 08/20/23 Levothyroxine Sodium (Levothyroxine) 25 Mcg Capsule, 25 MCG PO DAILY, CAP 08/20/23 Past Medical History Past Medical History: Arthritis, Hypothyroid Additional Past Medical Hx: SCOLIOSIS, CHRONIC NECK PAIN Surgical History: Appendectomy, Hysterectomy, Cholecystectomy, Other Surgical History Other: COLON RESECTION, Family History: Negative Social History: Negative History: Not Applicable RN Note Reviewed/Agreed w/PFSH: Yes Review of System Dictation Constitutional: Negative for fever,chills, and weight loss, positive for generalized weakness Eyes: Negative for injury, pain,redness, and discharge ENT: Negative for injury,pain or swelling Cardiovascular: Positive for chest pain, palpitations, and edema Respiratory: Negative for shortness of breath, cough, and wheezing, Abdomen/GI: Negative for abdominal pain, nausea, vomiting, diarrhea, and constip ation Back: Negative for injury and pain : Negative for injury, bleeding and discharge MS/Extremity: Negative for injury and deformity Skin: Negative for rash, and discoloration Neuro: Negative for headache, weakness, numbness, tingling, and seizure Psych: Negative for suicide ideation, homicidal ideation, and hallucinations Initial Vital Sign VS Vital Signs Date Time Temp Pulse Resp B/P (MAP) Pulse Ox O2 Delivery O2 Flow Rate FiO2 06/04/24 23:01 97.9 76 18 188/78 100 Room Air 0 06/05/24 00:50 21 Physical Exam Dictation General: awake, alert, NAD Head/Face: Normocephalic, atraumatic Eyes: PERRL, EOMI, vision at baseline ENT: oral cavity clear, TMs clear, no signs of infection Neck: Trachea midline, supple, no nuchal rigidity Cardiovascular: RRR, normal S1/S2, No MRGs, no JVD Respiratory: CTAB, no respiratory distress, No rales or wheezes Abdomen: Soft, non-tender, non-distended, normal bowel sounds, no guarding or rebound. Skin: Warm, dry, normal turgor, no rash MS/Extremity: Pulses equal, no cyanosis, neurovascular intact, FROM Neuro: COAx4, GCS 15, strength 5/5, CN 2-12 intact, normal cerebellar exam, normal gait, Psych: Normal behavior, mood, and affect normal Extremities-trace edema without any palpable cords, Homans sign is negative Results (Laboratory/Radiology) Laboratory/Radiology Laboratory Tests Test 06/04/24 23:41 06/04/24 23:56 White Blood Count 11.0 K/uL (4.8-10.8) H Red Blood Count 4.42 MIL/uL (4.00-5.50) Hemoglobin 13.4 g/dL (12.0-16.0) Hematocrit 41.0 % (36-48) Mean Corpuscular Volume 92.8 fL (79-99) Mean Corpuscular Hemoglobin 30.3 pg (27.0-33.0) Mean Corpuscular Hemoglobin Concent 32.7 g/dL (32.0-36.0) Red Cell Distribution Width 12.4 % (11.0-15.5) Platelet Count 276 K/uL (130-400) Mean Platelet Volume 9.4 fL (7.5-10.5) Immature Granulocyte % (Auto) 0.5 % (0-1) Neutrophils (%) (Auto) 69.8 % (40.0-77.0) Lymphocytes (%) (Auto) 19.6 % (21.0-51.0) L Monocytes (%) (Auto) 7.5 % (3.0-13.0) Eosinophils (%) (Auto) 2.3 % (0.0-8.0) Basophils (%) (Auto) 0.3 % (0.0-5.0) Neutrophils # (Auto) 7.7 K/uL (1.8-7.7) Lymphocytes # (Auto) 2.2 K/uL (1.0-4.8) Monocytes # (Auto) 0.8 K/uL (0.1-1.0) Eosinophils # (Auto) 0.25 K/uL (0.00-0.70) Basophils # (Auto) 0.03 K/uL (0.00-0.20) Absolute Immature Granulocyte (auto 0.05 K/uL (0-1) Nucleated Red Blood Cells 0.0 % (0.0-0.19) Sodium Level 142 mmol/L (136-145) Potassium Level 4.3 mmol/L (3.5-5.1) Chloride Level 106 mmol/L (101-111) Carbon Dioxide Level 30 mmol/L (21-32) Blood Urea Nitrogen 15 mg/dL (7-18) Creatinine 0.8 mg/dL (0.5-1.0) Glomerular Filtration Rate Calc 76 mL/min (>90) Random Glucose 109 mg/dL (70-105) H Total Calcium 9.9 mg/dL (8.5-10.1) Total Creatine Kinase 84 U/L (21-232) Troponin I High Sensitivity 5.1 ng/L (4-50) B-Type Natriuretic Peptide 25 pg/mL (0-100) Urine Color COLORLESS (YELLOW) Urine Appearance CLEAR (CLEAR) Urine pH 7.0 (5.0-8.0) Urine Specific [place] 1.002 (1.001-1.031) Urine Protein NEGATIVE mg/dL (NEGATIVE) Urine Glucose (UA) NEGATIVE mg/dL (NEGATIVE) Urine Ketones NEGATIVE mg/dL (NEGATIVE) Urine Occult Blood NEGATIVE (NEGATIVE) Urine Nitrate NEGATIVE (NEGATIVE) Urine Bilirubin NEGATIVE mg/dL (NEGATIVE) Urine Urobilinogen 0.2 mg/dL (0.2-1.0) Urine Leukocyte Esterase NEGATIVE Maria Victoria/uL Labs Reviewed?: Yes EKG Comment: Twelve lead EKG done on 06/04/2024 at 11:04 p.m. showed a heart rate of 63, NV 163, QRS 88, QT/QTC 411/421. Impression normal sinus rhythm with nonspecific STT wave changes no acute ST elevations or deep ST depressions that I could appreciate Interpreted by ER MD Dr. Padron ED Course ED Course Orders Procedure Category Date Status Time Cardiac Panel LAB 06/04/24 Complete 23:14 Cbc With Differential LAB 06/04/24 Complete 23:14 Basic Metabolic Panel LAB 06/04/24 Complete 23:14 B-Type Natriuretic LAB 06/04/24 Complete Peptide 23:14 Urinalysis Profile LAB 06/04/24 Complete 23:14 12 Lead Ekg Tracing- EKG 06/04/24 Logged Technical 23:14 Chest 1vw RAD 06/04/24 Taken 23:14 Ondansetron 4mg Inj PHA 06/05/24 Complete (Zofran 4mg Inj) 00:00 Acetaminophen 325 Tab PHA 06/05/24 Complete (Tylenol 325mg Tab 00:00 Hydromorphone 0.5mg PHA 06/05/24 Complete Syg (Dilaudid 0.5mg 01:00 Hydralazine 20mg Inj PHA 06/05/24 Complete (Apresoline 20mg In 01:00 Current Medications Medications (Trade) Dose Ordered Sig/Fidel Route PRN Reason Start Time Stop Time Status Last Admin Dose Admin Acetaminophen (TYLenol 325MG TAB) 650 mg ONCE ONCE PO 06/05/24 00:00 06/05/24 00:01 DC 06/05/24 00:06 Hydralazine HCl (APRESOLine 20MG INJ) 10 mg ONCE ONCE IV 06/05/24 01:00 06/05/24 01:01 DC 06/05/24 01:07 Hydromorphone HCl (DiLAUDid 0.5MG INJ) 0.5 mg ONCE ONCE IVP 06/05/24 01:00 06/05/24 01:01 DC 06/05/24 01:07 Ondansetron HCl (zoFRAN 4MG INJ) 4 mg ONCE ONCE IVP 06/05/24 00:00 06/05/24 00:01 DC 06/05/24 00:05 Vital Signs Date Time Temp Pulse Resp B/P (MAP) Pulse Ox O2 Delivery O2 Flow Rate FiO2 06/05/24 01:59 82 16 121/58 99 Room Air* 0 21 06/05/24 01:24 98.4 75 18 128/63 99 Room Air* 0 21 06/05/24 00:50 68 18 169/78 98 Room Air* 0 21 06/04/24 23:01 97.9 76 18 188/78 100 Room Air 0 We will perform diagnostic labs, advanced imaging and administer medications according to the patient's complaint. Once the results are available, will review and personally interpreted the labs to rule out any acute life- threatening emergency the trach require immediate intervention and treatment. I will then re-evaluate the patient after treatment and diagnostic exams have return to determine whether the patient requires any further testing, can safely be discharged home or need further admission to hospital for additional treatment and evaluation. Reviewed [place] [address] hemoglobin 13.4. BNP 7 was acceptable with a BUN and creatinine of 15 and 0.8 and glucose of 109, urinalysis is unremarkable and chest x-ray is essentially negative for any acute infiltrates. I had a very long discussion with the patient and her spouse and with multiple episodes of hypertension headaches and the osman of warmth feeling I have r ecommended that she is likely an essential hypertensive and it would be reasonable to initiate an antihypertensive at a low-dose. I also recommended that she should be evaluated for temporal arteritis. They both verbalized full understanding and are agreeable to initiation of antihypertensive medication. HEART Score Response (Comments) Value History: Moderate suspicion (+1) 1 Age: > 65yrs (+2) 2 Risk Factors: 1-2 risk factors (+1) 1 Initial Troponin: Normal limit (0) 0 HEART Score Risk: Mod Risk for MACE (4-6) Total 4 Medical Decision Making MDM MDM: Differential diagnosis: Essential hypertension, hypertensive urgency, hypertensive emergency, malignant hypertension Rationale: Tests considered and ordered secondary to shared decision making include: Previous outside records reviewed: Old ER visits. Risk of complication and/or morbidity or mortality of patient management: None Medications-Per medication reconciliation Need for hospitalization: Patient does not meet criteria for hospitalization. Need for emergency major/minor surgery: No There are no social concerns with this patient. Prescription drug management Prescriptions will include symptomatic care Patient's prior external medical records from other ER visits were reviewed by me as indicated. Prior testing and results from previous visits were reviewed. Prior tests were taken into account with medical decision making and resource utilization, independent historian/historians were used to obtain complete medical history. I independently interpreted the test that were performed, results were reviewed by me and considered findings on radiology if ordered. Medical management and examination interpretation discussions were had by me with other qualified healthcare professionals as indicated for the patient's care. Problem List Problem List: (1) Hypertensive urgency (2) Chest pain (3) Generalized weakness (4) Hypothyroidism (5) CS (cervical spondylosis) (6) Degenerative disc disease, cervical DX & DISP Disposition: Discharge Departure Impression: Primary Impression: Chest pain Additional Impressions: Hypertensive urgency, Generalized weakness, Hypothyroidism, CS (cervical spondylosis), Degenerative disc disease, cervical Condition: Stable Scripts Eszopiclone (Eszopiclone) 2 Mg Tablet 1 TAB PO HSPRN PRN for sleep for 30 Days, #30 TAB 0 Refills Prov: NEVA PADRON MD 06/05/24 Lisinopril (Lisinopril) 10 Mg Tablet 1 TAB PO DAILY for 30 Days, #30 TAB 0 Refills Prov: NEVA PADRON MD 06/05/24 Additional Instructions: Patient and the caregiver have been informed of all the diagnostic tests and the imaging conducted during the today's visit to the emergency room and has verbalized understanding of the results I have personally reviewed and interpreted all diagnostic exams performed here in the ER today as well as the vital signs documented by the nursing staff. The patient is now being discharged to home and should follow up with the primary care physician or the s pecialist as directed by the ER staff. Follow-up with primary care provider in 1 to 2 days. Take medications as directed here in the emergency room. Okay to continue home medications unless otherwise discussed during your visit in the emergency room today. Return to your nearest emergency room if symptoms worsen or if there is no improvement. Call 911 if you need immediate assistance. Take Tylenol or Motrin [id number] as needed and if no contraindications are present. Increase oral hydration. A wound culture or urine culture was ordered here in the emergency room department please follow-up with primary care provider and advise them to get repeat ports from our facility. If you had any Jonatan wrap/splints that were applied here, please do not remove them until you see your primary care or specialty. Instructed patient to follow up with the primary care physician Dr. Adriana Gonzalez to be evaluated for TEMPORAL ARTERITIS Referrals: ADRIANA GONZALEZ MD (PCP) NEVA PADRON MD Jun 04, 2024 23:19
[2024-06-04 23:55] LABS: BASOPHILS # (AUTO) 0.03 K/uL (0.00-0.20); BASOPHILS % (AUTO) 0.3 % (0.0-5.0); EOSINOPHILS # (AUTO) 0.25 K/uL (0.00-0.70); EOSINOPHILS % (AUTO) 2.3 % (0.0-8.0); IMMATURE GRANULOCYTE ABSOLUTE 0.05 K/uL (0-1); LYMPHOCYTES # (AUTO) 2.2 K/uL (1.0-4.8); LYMPHOCYTES % (AUTO) 19.6 % (21.0-51.0); MEAN CORPUSCULAR HEMOGLOBIN 30.3 pg (27.0-33.0); MEAN CORPUSCULAR HGB CONC 32.7 g/dL (32.0-36.0); MEAN CORPUSCULAR VOLUME 92.8 fL (79-99); MONOCYTES # (AUTO) 0.8 K/uL (0.1-1.0); MONOCYTES % (AUTO) 7.5 % (3.0-13.0); NEUTROPHILS # (AUTO) 7.7 K/uL (1.8-7.7); NEUTROPHILS % (AUTO) 69.8 % (40.0-77.0); PLATELET COUNT (AUTO) 276 K/uL (130-400); RED BLOOD CELL COUNT(AUTO) 4.42 MIL/uL (4.00-5.50); RED CELL DISTRIBUTION WIDTH 12.4 % (11.0-15.5)
[2024-06-05 00:03] LABS: CREATININE 0.8 mg/dL (0.5-1.0); POTASSIUM 4.3 mmol/L (3.5-5.1)
[2024-06-05] MEDS: ondanSETRON 4MG INJ IVP ONE (00:05)
[2024-06-05] MEDS: acetaMINOPHEN 325 MG TAB PO ONE (00:06)
[2024-06-05 00:10] LABS: APPEARANCE,URINE CLEAR (CLEAR); BILIRUBIN,URINE NEGATIVE (NEGATIVE); COLOR,URINE COLORLESS (YELLOW); GLUCOSE, URINE (UA) NEGATIVE (NEGATIVE); KETONES,URINE NEGATIVE (NEGATIVE); LEUKOCYTE ESTERASE ,URINE NEGATIVE Leu/uL (NEGATIVE); NITRATE,URINE NEGATIVE (NEGATIVE); OCCULT BLOOD,URINE NEGATIVE (NEGATIVE); PROTEIN,URINE NEGATIVE (NEGATIVE); UROBILINOGEN,URINE 0.2 mg/dL (0.2-1.0)
--- NOTE | 2024-06-05 00:12 | NUR ---
AND AT BEDSIDE.
[2024-06-05 00:13] LABS: ADD UA MICROSCOPIC NO
[2024-06-05 00:32] LABS: B-TYPE NATRIURETIC PEPTIDE 25 pg/mL (0-100)
[2024-06-05] MEDS ORDERED: ESZO2TAB31 PO (00:40)
[2024-06-05] MEDS ORDERED: LISI10TA24 PO (00:40)
[2024-06-05] MEDS: hydroMORPHone 0.5 MG SYG (0.5MG/0.5ML) IVP ONE (01:07)
[2024-06-05] MEDS: hydrALAZine 20MG/ML VIAL IV ONE (01:07)
[2024-06-05 01:24] VITALS: TEMP 98.4
[2024-06-05 01:59] VITALS: BP 121/58; PULSE 82; RESP 16; O2SAT 99
--- NOTE | 2024-06-05 06:16 | EKG ---
[facility] Test Date: 2024-06-04 Test Time: 23:04:29 Pat Name: NELLIE HOU Department: ED Room: Gender: F Crayon Sawyer: [id number] : 1950 Requested By: NEVA KRISHNAMURTHY Order Number: [id number] Reading MD: Natasha Bustamante Measurements Intervals [place] Rate: 63 P: 40 WV: 163 QRS: -3 QRSD: 88 T: 50 QT: 411 QTc: 421 Interpretive Statements Sinus rhythm Nonspecific T abnormalities, anterior leads Compared to ECG 04/03/2024 11:57:26 T-wave abnormality now present Electronically Signed On 06-05-2024 17:09:48 METAL HANGING SUPERVISOR by Natasha Bustamante Please click the below link to view image of tracing.
--- NOTE | 2024-06-05 08:46 | HMCIMG ---
CHEST 1VW REASON: hypertensive urgency, chest pain COMPARISON: 03/28/2024 FINDINGS: Single view of the chest was obtained. Lungs are clear. Heart size is normal. There is no pulmonary vascular congestion. Mediastinum and bony thorax appear unremarkable. IMPRESSION: 1. Normal single view chest x-ray.
== END 2024-06-05 02:34 | disposition home or self-care (01) ==
LOC: EDH 22:59
DX: R07.89 Other chest pain (principal); R53.1 Weakness; I16.0 Hypertensive urgency; M47.812 Spondylosis without myelopathy or radiculopathy, cervical region; G89.29 Other chronic pain; M54.2 Cervicalgia; E03.9 Hypothyroidism, unspecified; I10 Essential (primary) hypertension; Z79.621 Long term (current) use of calcineurin inhibitor; Z79.890 Hormone replacement therapy; Z79.899 Other long term (current) drug therapy; Z88.1 Allergy status to other antibiotic agents; Z90.49 Acquired absence of other specified parts of digestive tract; Z90.710 Acquired absence of both cervix and uterus
CPT/HCPCS: 99285; 71045; 82550; 84484; 80048; 83880; 85025; 81003; 36415; 93005; 96374; 96375; J1171; J0360; J2405

== ENCOUNTER 2024-12-27 08:47 | Emergency (ER) | payer MEDICARE ==
[~2024-12-27] VITALS: Ht 149.9 cm; Wt 58.1 kg
[~2024-12-27 08:47] MED LIST changes: +ESZO2TAB31 PO; -LEVO25CA4 PO; +LEVO25CA5 PO; +LISI10TA24 PO
[2024-12-27 09:57] LABS: IMMATURE GRANULOCYTE ABSOLUTE 0.04 K/uL (0-1); NUCLEATED RED BLOOD CELLS 0.0 % (0.0-0.19); PLATELET COUNT (AUTO) 291 K/uL (130-400); RED BLOOD CELL COUNT(AUTO) 4.28 MIL/uL (4.00-5.50); RED CELL DISTRIBUTION WIDTH 12.6 % (11.0-15.5); WHITE BLOOD COUNT (AUTO) 8.1 K/uL (4.8-10.8)
[2024-12-27 10:07] LABS: CREATININE 0.7 mg/dL (0.5-1.0); GLOMERULAR FILTR. RATE CALC 90.0 mL/min (>90); GLUCOSE,RANDOM 97.0 mg/dL (70-105); SODIUM SERUM 144.0 mmol/L (136-145); UREA NITROGEN, BLOOD 13.0 mg/dL (7-18)
[2024-12-27 11:05] VITALS: BP 146/69; PULSE 60; RESP 16; TEMP 97.5; O2SAT 98
--- NOTE | 2024-12-27 12:53 | ERN ---
ED Note History of Present Illness Stated Complaint: HIGH BLOOD PRESSURE Chief Complaint: Hypertension Time Seen by MD: 08:50 Dictation: 74-year-old female presenting to the emergency department with episode of hypertension and neck discomfort. Patient denies chest pain or shortness a breath. Patient has had episodes of similar high blood pressure readings. Allergies: Coded Allergies: levofloxacin (Unverified Allergy, Unknown, 08/20/23) Home Meds Active Scripts Eszopiclone (Eszopiclone) 2 Mg Tablet, 1 TAB PO HSPRN PRN for sleep for 30 Days, #30 TAB 0 Refills Prov:NEVA KRISHNAMURTHY MD 06/05/24 Lisinopril (Lisinopril) 10 Mg Tablet, 1 TAB PO DAILY for 30 Days, #30 TAB 0 Refills Prov:NEVA KRISHNAMURTHY MD 06/05/24 Losartan Potassium (Cozaar) 25 Mg Tablet, 25 MG PO BID for 30 Days, #60 TAB Prov:LOLIS KEITH MEDICAL LIAISON 08/21/23 Cephalexin (Cephalexin) 500 Mg Capsule, 500 MG PO BID for 7 Days, #14 CAP Prov:LOLIS KEITH MEDICAL LIAISON 08/21/23 Reported Medications Timolol Maleate/Pf (Timolol Maleate 0.5% Eye Drop) 0.5 % Droperette, 1 EACH OP HS, DROP 08/20/23 Cyclosporine (Cyclosporine) 0.05 % Droperette, 1 EACH OP BID, DROP 08/20/23 Lidocaine (Lidocaine) 5 % Adh..patch, 1 EACH TP [id number] PRN for PAIN LEVEL 1 TO 5, ADH.PATCH 08/20/23 Hydrocodone/Acetaminophen (Hydrocodon-Acetaminophn 10-325) 10 Mg-325 Mg Tablet, 1 EACH PO BID, TAB 08/20/23 Levothyroxine Sodium (Levothyroxine) 25 Mcg Capsule, 25 MCG PO DAILY, CAP 08/20/23 Past Medical History Past Medical History: Hypothyroid, Other Additional Past Medical Hx: osteapenia, osteoarthritis, chronic back pain Surgical History: Appendectomy, Hysterectomy, Other Surgical History Other: large intestine Family History: Negative Social History: Negative History: Not Applicable Review of System Dictation Constitutional: Negative for fever,chills, and weight loss Eyes: Negative for injury, pain,redness, and discharge ENT: Negative for injury,pain or swelling Cardiovascular: Negative for chest pain, palpitations, and edema Respiratory: Negative for shortness of breath, cough, and wheezing, Abdomen/GI: Negative for abdominal pain, nausea, vomiting, diarrhea, and constipation Back: Negative for injury and pain : Negative for injury, bleeding and discharge MS/Extremity: Per HPI Skin: Negative for rash, and discoloration Neuro: Negative for headache, weakness, numbness, tingling, and seizure Psych: Negative for suicide ideation, homicidal ideation, and hallucinations Initial Vital Sign VS Vital Signs Date Time Temp Pulse Resp B/P (MAP) Pulse Ox O2 Delivery O2 Flow Rate FiO2 12/27/24 08:49 97.5 85 16 180/97 98 Room Air 0 12/27/24 08:54 21 Physical Exam Dictation General: awake, alert, NAD Head/Face: Normocephalic, atraumatic Eyes: PERRL, EOMI, vision at baseline ENT: oral cavity clear, TMs clear, no signs of infection Neck: Trachea midline, supple, no nuchal rigidity Cardiovascular: RRR, normal S1/S2, No MRGs, no JVD Respiratory: CTAB, no respiratory distress, No rales or wheezes Abdomen: Soft, non-tender, non-distended, normal bowel sounds, no guarding or rebound. Skin: Warm, dry, normal turgor, no rash MS/Extremity: Pulses equal, no cyanosis, neurovascular intact, FROM Neuro: COAx4, GCS 15, strength 5/5, CN 2-12 intact, normal cerebellar exam, normal gait, Psych: Normal behavior, mood, and affect normal Results (Laboratory/Radiology) Laboratory/Radiology Laboratory Tests Test 12/27/24 09:38 12/27/24 12:04 White Blood Count 8.1 K/uL (4.8-10.8) Red Blood Count 4.28 MIL/uL (4.00-5.50) Hemoglobin 13.1 g/dL (12.0-16.0) Hematocrit 40.7 % (36-48) Mean Corpuscular Volume 95.1 fL (79-99) Mean Corpuscular Hemoglobin 30.6 pg (27.0-33.0) Mean Corpuscular Hemoglobin Concent 32.2 g/dL (32.0-36.0) Red Cell Distribution Width 12.6 % (11.0-15.5) Platelet Count 291 K/uL (130-400) Mean Platelet Volume 9.3 fL (7.5-10.5) Immature Granulocyte % (Auto) 0.5 % (0-1) Neutrophils (%) (Auto) 69.5 % (40.0-77.0) Lymphocytes (%) (Auto) 20.5 % (21.0-51.0) L Monocytes (%) (Auto) 6.8 % (3.0-13.0) Eosinophils (%) (Auto) 2.2 % (0.0-8.0) Basophils (%) (Auto) 0.5 % (0.0-5.0) Neutrophils # (Auto) 5.7 K/uL (1.8-7.7) Lymphocytes # (Auto) 1.7 K/uL (1.0-4.8) Monocytes # (Auto) 0.6 K/uL (0.1-1.0) Eosinophils # (Auto) 0.18 K/uL (0.00-0.70) Basophils # (Auto) 0.04 K/uL (0.00-0.20) Absolute Immature Granulocyte (auto 0.04 K/uL (0-1) Nucleated Red Blood Cells 0.0 % (0.0-0.19) Sodium Level 144 mmol/L (136-145) Potassium Level 4.8 mmol/L (3.5-5.1) Chloride Level 106 mmol/L (101-111) Carbon Dioxide Level 30 mmol/L (21-32) Blood Urea Nitrogen 13 mg/dL (7-18) Creatinine 0.7 mg/dL (0.5-1.0) Glomerular Filtration Rate Calc 90 mL/min (>90) Random Glucose 97 mg/dL (70-105) Total Calcium 9.6 mg/dL (8.5-10.1) Troponin I High Sensitivity 4 ng/L (4-50) Whole Blood Glucose 98 MG/DL (70-110) Labs Reviewed?: Yes EKG Comment: HR 73, NSR, normal intervals, no STEMi ED Course ED Course Orders Procedure Category Date Status Time 12 Lead Ekg Tracing- EKG 12/27/24 Logged Technical 08:52 Cbc With Differential LAB 12/27/24 Complete 08:52 Basic Metabolic Panel LAB 12/27/24 Complete 08:52 Troponin I High LAB 12/27/24 Complete Sensitivity 08:52 Diazepam 5 Mg/Ml 2 Ml PHA 12/27/24 Complete Syg (Valium 5 Mg/M 09:30 Morphine 4mg Syg PHA 12/27/24 Complete (Morphine 4mg Syg) 12:00 Current Medications Medications (Trade) Dose Ordered Sig/Fidel Route PRN Reason Start Time Stop Time Status Last Admin Dose Admin Diazepam (VALium 5 MG/ML 2 ML SYG) 2.5 mg ONCE ONCE IVP 12/27/24 09:30 12/27/24 09:31 DC 12/27/24 09:34 Morphine Sulfate (morPHINE 4MG SYG) 4 mg ONCE ONCE IVP 12/27/24 12:00 12/27/24 12:01 DC 12/27/24 11:45 Vital Signs Date Time Temp Pulse Resp B/P (MAP) Pulse Ox O2 Delivery O2 Flow Rate FiO2 12/27/24 11:05 97.5 60 16 146/69 98 Room Air* 0 21 12/27/24 08:54 97.5 85 16 180/97 98 Room Air* 0 21 12/27/24 08:49 97.5 85 16 180/97 98 Room Air 0 Medical Decision Making MDM MDM: Differential diagnosis: Rationale: Tests considered and ordered secondary to shared decision making include: Previous outside records reviewed: Old ER visits. Risk of complication and/or morbidity or mortality of patient management: None Medications-Per medication reconciliation Need for hospitalization: Patient does not meet criteria for hospitalization. Need for emergency major/minor surgery: No There are no social concerns with this patient. Prescription drug management Prescriptions will include symptomatic care Patient's prior external medical records from other ER visits were reviewed by me as indicated. Prior testing and results from previous visits were reviewed. Prior tests were taken into account with medical decision making and resource utilization, independent historian/historians were used to obtain complete medical history. I independently interpreted the test that were performed, results were reviewed by me and considered findings on radiology if ordered. Medical management and examination interpretation discussions were had by me with other qualified healthcare professionals as indicated for the patient's care. 74-year-old female with hypertensive episode negative workup symptoms improved blood pressure stable now. DX & DISP Disposition: Discharge Departure Impression: Primary Impression: Hypertension Condition: Stable Referrals: FREIDA ADAMS MD (PCP) JULIANE HENDERSON MD Dec 27, 2024 12:53
--- NOTE | 2024-12-27 21:29 | EKG ---
[facility] Test Date: 2024-12-27 Test Time: 09:03:06 Pat Name: NELLIE OHU Department: ED Room: Gender: F Toe Stapler: [id number] : 1950 Requested By: JULIANE HENDERSON Order Number: [id number] Reading MD: Rod Bustamante Measurements Intervals [place] Rate: 73 P: 50 NM: 171 QRS: 0 QRSD: 82 T: 58 QT: 396 QTc: 438 Interpretive Statements Sinus rhythm Compared to ECG 06/04/2024 23:04:29 T-wave abnormality no longer present Electronically Signed On 12-28-2024 19:48:15 CDT by Rod Bustamante Please click the below link to view image of tracing.
== END 2024-12-27 13:37 | disposition home or self-care (01) ==
LOC: EDH 08:47
DX: I10 Essential (primary) hypertension (principal); E03.9 Hypothyroidism, unspecified; M19.90 Unspecified osteoarthritis, unspecified site; Z79.621 Long term (current) use of calcineurin inhibitor; Z79.890 Hormone replacement therapy; Z79.899 Other long term (current) drug therapy; Z88.1 Allergy status to other antibiotic agents; Z90.49 Acquired absence of other specified parts of digestive tract; Z90.710 Acquired absence of both cervix and uterus
CPT/HCPCS: 99284; 96374; 96375; 84484; 80048; 85025; 82948; 36415; 93005; J3360; J2270

== ENCOUNTER 2024-12-29 08:48 | Observation (INO) | payer MEDICARE ==
[~2024-12-29] VITALS: Ht 149.9 cm; Wt 56.7 kg
[2024-12-29 09:34] LABS: IMMATURE GRANULOCYTE ABSOLUTE 0.04 K/uL (0-1); NUCLEATED RED BLOOD CELLS 0.0 % (0.0-0.19); PLATELET COUNT (AUTO) 276 K/uL (130-400); RED BLOOD CELL COUNT(AUTO) 4.43 MIL/uL (4.00-5.50); RED CELL DISTRIBUTION WIDTH 12.7 % (11.0-15.5); WHITE BLOOD COUNT (AUTO) 8.9 K/uL (4.8-10.8)
--- NOTE | 2024-12-29 09:35 | HMCIMG ---
EXAM: CR Chest, 1 View. CLINICAL HISTORY: sob COMPARISON: 06/04/24 23:19 EST CR - CHEST 1VW FINDINGS: LUNGS: The lungs show no infiltrate or other acute finding. PLEURAL SPACES: No pleural effusion or pneumothorax. MEDIASTINUM: The cardiomediastinal silhouette is within normal limits. BONES: No acute osseous abnormality. IMPRESSION: No acute cardiopulmonary pathology is evident. /Hecker
[2024-12-29 09:43] LABS: CREATININE 0.7 mg/dL (0.5-1.0); GLOMERULAR FILTR. RATE CALC 90.0 mL/min (>90); GLUCOSE,RANDOM 105.0 mg/dL (70-105); SODIUM SERUM 139.0 mmol/L (136-145); UREA NITROGEN, BLOOD 11.0 mg/dL (7-18)
[2024-12-29 09:44] LABS: INR 0.99 (0.85-1.15)
[2024-12-29 09:48] LABS: CREATINE KINASE, TOTAL 80.0 U/L (21-232)
--- NOTE | 2024-12-29 10:27 | NUR ---
C/O HEADACHE, TORADOL ORDERED BY WALDO CARDONA
--- NOTE | 2024-12-29 11:36 | ERN ---
General Chief Complaint: Palpitations Stated Complaint: PALPITATION Time Seen by MD: 09:02 History of Present Illness Initial Comments 74 y/o female came in for chest pain and palpitation. Allergies: Coded Allergies: levofloxacin (Unverified Allergy, Unknown, 08/20/23) Home Meds Active Scripts Eszopiclone (Eszopiclone) 2 Mg Tablet, 1 TAB PO HSPRN PRN for sleep for 30 Days, #30 TAB 0 Refills Prov:NEVA KRISHNAMURTHY MD 06/05/24 Lisinopril (Lisinopril) 10 Mg Tablet, 1 TAB PO DAILY for 30 Days, #30 TAB 0 Refills Prov:NEVA KRISHNAMURTHY MD 06/05/24 Losartan Potassium (Cozaar) 25 Mg Tablet, 25 MG PO BID for 30 Days, #60 TAB Prov:LOLIS KEITH NP 08/21/23 Cephalexin (Cephalexin) 500 Mg Capsule, 500 MG PO BID for 7 Days, #14 CAP Prov:LOLIS KEITH NP 08/21/23 Reported Medications Timolol Maleate/Pf (Timolol Maleate 0.5% Eye Drop) 0.5 % Droperette, 1 EACH OP HS, DROP 08/20/23 Cyclosporine (Cyclosporine) 0.05 % Droperette, 1 EACH OP BID, DROP 08/20/23 Lidocaine (Lidocaine) 5 % Adh..patch, 1 EACH TP [id number] PRN for PAIN LEVEL 1 TO 5, ADH.PATCH 08/20/23 Hydrocodone/Acetaminophen (Hydrocodon-Acetaminophn 10-325) 10 Mg-325 Mg Tablet, 1 EACH PO BID, TAB 08/20/23 Levothyroxine Sodium (Levothyroxine) 25 Mcg Capsule, 25 MCG PO DAILY, CAP 08/20/23 Past Medical History Past Medical History: Hypertension Medical History Other: osteapenia, osteoarthritis, chronic back pain Past Surgical History: Appendectomy, Hysterectomy, Cholecystectomy Surgical History Other: COLON RESECTION Family History Family History: Negative Social History Social History: Negative Female( History) History: Not Applicable ROS Dictation Chest pain Physical Exam Neck: (+) normal inspection Respiratory: (+) chest non-tender Heart: (+) regular, (+) no gallop Results Laboratory and Microbiology Lab and Micro Result Laboratory Tests Test 12/29/24 09:21 White Blood Count 8.9 K/uL (4.8-10.8) Red Blood Count 4.43 MIL/uL (4.00-5.50) Hemoglobin 13.7 g/dL (12.0-16.0) Hematocrit 41.8 % (36-48) Mean Corpuscular Volume 94.4 fL (79-99) Mean Corpuscular Hemoglobin 30.9 pg (27.0-33.0) Mean Corpuscular Hemoglobin Concent 32.8 g/dL (32.0-36.0) Red Cell Distribution Width 12.7 % (11.0-15.5) Platelet Count 276 K/uL (130-400) Mean Platelet Volume 9.1 fL (7.5-10.5) Immature Granulocyte % (Auto) 0.4 % (0-1) Neutrophils (%) (Auto) 70.1 % (40.0-77.0) Lymphocytes (%) (Auto) 20.9 % (21.0-51.0) L Monocytes (%) (Auto) 6.7 % (3.0-13.0) Eosinophils (%) (Auto) 1.6 % (0.0-8.0) Basophils (%) (Auto) 0.3 % (0.0-5.0) Neutrophils # (Auto) 6.3 K/uL (1.8-7.7) Lymphocytes # (Auto) 1.9 K/uL (1.0-4.8) Monocytes # (Auto) 0.6 K/uL (0.1-1.0) Eosinophils # (Auto) 0.14 K/uL (0.00-0.70) Basophils # (Auto) 0.03 K/uL (0.00-0.20) Absolute Immature Granulocyte (auto 0.04 K/uL (0-1) Nucleated Red Blood Cells 0.0 % (0.0-0.19) Prothrombin Time 10.5 SEC (9.6-11.6) Prothromb Time International Ratio 0.99 (0.85-1.15) Activated Partial Thromboplast Time 25.6 SEC (26.3-35.5) L Sodium Level 139 mmol/L (136-145) Potassium Level 3.5 mmol/L (3.5-5.1) Chloride Level 103 mmol/L (101-111) Carbon Dioxide Level 29 mmol/L (21-32) Blood Urea Nitrogen 11 mg/dL (7-18) Creatinine 0.7 mg/dL (0.5-1.0) Glomerular Filtration Rate Calc 90 mL/min (>90) Random Glucose 105 mg/dL (70-105) Total Calcium 9.4 mg/dL (8.5-10.1) Magnesium Level 1.80 mg/dL (1.80-2.40) Total Creatine Kinase 80 U/L (21-232) Troponin I High Sensitivity < 4 ng/L (4-50) L B-Type Natriuretic Peptide 23 pg/mL (0-100) MDM Pt admitted to hospitalist service ED Course Orders Procedure Category Date Status Time 12 Lead Ekg Tracing- EKG 12/29/24 Logged Technical 09:01 Cbc With Differential LAB 12/29/24 Complete 09:01 Basic Metabolic Panel LAB 12/29/24 Complete 09:01 B-Type Natriuretic LAB 12/29/24 Complete Peptide 09:01 Creatine Kinase, Total LAB 12/29/24 Complete 09:01 Magnesium LAB 12/29/24 Complete 09:01 Troponin I High LAB 12/29/24 Complete Sensitivity 09:01 Chest 1vw RAD 12/29/24 Resulted 09:01 Pt And Ptt LAB 12/29/24 Complete 09:01 Ct Head/Brain W/O CT 12/29/24 Taken Contrast 09:51 Ketorolac PHA 12/29/24 Complete Tromethamine 15mg/Ml 10:30 Current Medications Medications (Trade) Dose Ordered Sig/Fidel Route PRN Reason Start Time Stop Time Status Last Admin Dose Admin Ketorolac Tromethamine (toRADol) 15 mg ONCE ONCE IV 12/29/24 10:30 12/29/24 10:31 DC 12/29/24 10:33 Vital Signs Date Time Temp Pulse Resp B/P (MAP) Pulse Ox O2 Delivery O2 Flow Rate FiO2 12/29/24 11:04 82 16 140/72 98 Room Air* 0 21 12/29/24 08:50 98.8 94 18 175/92 98 Room Air 0 DX & DISP Disposition: Inpatient Departure Impression: Primary Impression: Chest pain Condition: Stable Referrals: FREIDA ADAMS MD (PCP) EMILIA ALMEIDA MD Dec 29, 2024 11:36
--- NOTE | 2024-12-29 11:37 | HMCIMG ---
EXAM: CT Head Without IV contrast. CLINICAL HISTORY: headache TECHNIQUE: Axial computed tomography images of the head/brain without intravenous contrast. COMPARISON: None provided. FINDINGS: BRAIN: Generalized cerebral atrophy, not unexpected for the patient's chronological age. No evidence of acute hemorrhage. No mass lesion. No CT evidence for acute territorial infarct. Chronic microvascular ischemic white matter disease. No midline shift or extra-axial collections. VENTRICLES: No hydrocephalus. ORBITS: The orbits are unremarkable. SINUSES AND MASTOIDS: The paranasal sinuses and mastoid air cells are clear. BONES: No fracture. SOFT TISSUES: Unremarkable. IMPRESSION: 1. No acute intracranial findings. /[place]
[2024-12-29] MEDS ORDERED: ARTIFICAL TEARS SOL 15 ML OP PRN (12:00)
[2024-12-29] MEDS ORDERED: LOPERAMIDE HCL 2 MG CAP PO PRN (12:00)
[2024-12-29] MEDS ORDERED: BENZOCAINE/MENTH/CETYLPYRD CL 1 EACH LOZENGE MM PRN (12:00)
--- NOTE | 2024-12-29 12:58 | HP ---
[facility] HISTORY & PHYSICAL Date Patient Seen: Dec 29, 2024 Time of Visit: 12:46 Supervising Physician: Dr. Jesus Alberto Burt Primary Care Physician: [ ] Outpatient Specialists: [ ] Inpatient Consults: [facility] PROBLEM LIST: Chest pain and palpitations Headache Hypertension Chronic cervical and thoracic back pain History of diverticulitis with colon resection HPI: Patient is a 74-year-old female that presented to the emergency department reporting severe neck pain, headache and chest palpitations. Patient states she reached out to her horseback riding instructor, [facility] and she was advised to come to the emergency department. She has a past medical history for degenerative cervical osteoarthritis and scoliosis for which she sees Dr. Delatorre with pain management since 2012. She states that she has had injections in the past which have not provided any relief. And is currently being treated with hydrocodone for her pain. Patient states that she recently had a workup with [facility] an imaging studies were performed which she can not result called the facility. Review in our system do not show any type of recent scans. Patient has prior admissions for hypertensive emergencies which she states is related to her pain. Patient also has a history of severe diverticulitis with history of colon resections. She denies any abdominal complaints no nausea or vomiting. Patient with elevated systolics in the 170s at presentation. CT imaging brain revealed no bleeds. Chest x-ray was clear. Her labs stable, troponin normal and no EKG findings. Patient pending evaluation by [facility]. Admitted for ongoing chest pain and ACS evaluation. Full code status PAST MEDICAL HX: see above PAST SURGICAL HX: noncontributory SOCIAL HISTORY: No tobacco, ETOH, or illicit drug use Coded Allergies: levofloxacin (Unverified Allergy, Unknown, 08/20/23) REVIEW OF SYSTEMS: 12 point ROS reviewed with patient. Pertinent positives mentioned above. Otherwise negative. PHYSICAL EXAM: GENERAL: alert, weak, awake oriented x 3 HEENT: EOMI, Sclera non icteric, moist mucosa NECK: Supple, no JVD, trachea midline LUNGS: Clear breath sounds bilaterally. No wheezes HEART: Regular rate and rhythm. Normal S1 and S2, without murmurs ABD: Abdomen soft, nontender. Bowel sounds present EXT: No clubbing cyanosis or edema NEURO: Alert and oriented to person, follows commands Vital Signs (last 8hr) Date Time Temp Pulse Resp B/P (MAP) Pulse Ox O2 Delivery O2 Flow Rate FiO2 12/29/24 11:04 82 16 140/72 98 Room Air* 0 21 12/29/24 08:50 98.8 94 18 175/92 98 Room Air 0 LABS: Hematology Labs: Test 12/29/24 09:21 Range/Units White Blood Count 8.9 4.8-10.8 K/uL Red Blood Count 4.43 4.00-5.50 MIL/uL Hemoglobin 13.7 12.0-16.0 g/dL Hematocrit 41.8 36-48 % Mean Corpuscular Volume 94.4 79-99 fL Mean Corpuscular Hemoglobin 30.9 27.0-33.0 pg Mean Corpuscular Hemoglobin Concent 32.8 32.0-36.0 g/dL Red Cell Distribution Width 12.7 11.0-15.5 % Platelet Count 276 130-400 K/uL Mean Platelet Volume 9.1 7.5-10.5 fL Immature Granulocyte % (Auto) 0.4 0-1 % Neutrophils (%) (Auto) 70.1 40.0-77.0 % Lymphocytes (%) (Auto) 20.9 L 21.0-51.0 % Monocytes (%) (Auto) 6.7 3.0-13.0 % Eosinophils (%) (Auto) 1.6 0.0-8.0 % Basophils (%) (Auto) 0.3 0.0-5.0 % Neutrophils # (Auto) 6.3 1.8-7.7 K/uL Lymphocytes # (Auto) 1.9 1.0-4.8 K/uL Monocytes # (Auto) 0.6 0.1-1.0 K/uL Eosinophils # (Auto) 0.14 0.00-0.70 K/uL Basophils # (Auto) 0.03 0.00-0.20 K/uL Absolute Immature Granulocyte (auto 0.04 0-1 K/uL Nucleated Red Blood Cells 0.0 0.0-0.19 % Chemistry Labs: Test 12/29/24 09:21 Range/Units Sodium Level 139 136-145 mmol/L Potassium Level 3.5 3.5-5.1 mmol/L Chloride Level 103 101-111 mmol/L Carbon Dioxide Level 29 21-32 mmol/L Blood Urea Nitrogen 11 7-18 mg/dL Creatinine 0.7 0.5-1.0 mg/dL Glomerular Filtration Rate Calc 90 >90 mL/min Random Glucose 105 70-105 mg/dL Total Calcium 9.4 8.5-10.1 mg/dL Magnesium Level 1.80 1.80-2.40 mg/dL Total Creatine Kinase 80 21-232 U/L Troponin I High Sensitivity < 4 L 4-50 ng/L B-Type Natriuretic Peptide 23 0-100 pg/mL Coagulation Labs: Test 12/29/24 09:21 Range/Units Prothrombin Time 10.5 9.6-11.6 SEC Prothromb Time International Ratio 0.99 0.85-1.15 Activated Partial Thromboplast Time 25.6 L 26.3-35.5 SEC DIAGNOSTICS / RADIOLOGY RESULTS: [ ] PLAN Pending [facility] evaluation, apparently patient had some imaging, she states MRI or M RA of the chest recently for which she was supposed to get those results tomorrow. Unable to find any imaging here at [facility]. Possible [facility] knows the location of those imaging. A CT of the head was negative. Ordered a CT of the neck along with ultrasound Of bilateral carotids. Patient states she has never seen a neurologist for her headaches or neck pain. I will re-evaluate her in the a.m. and pending [facility] recommendations Possible neurology consult. Telemetry Pain control Follow pending imaging NEURO: Minimize central acting medications as possible. Fall Precautions. Well lighted room through the day and minimize interruptions through the night to prevent acute delirium. PULMONARY: Supplemental 02 as needed Titrate Fio2 to keep Spo2 > or = 90% DuoNebs and CPT as needed IS hourly while awake for pulmonary hygiene Out of bed to chair as tolerated VAP Bundle Vent/BIPAP Settings: [ ] Driving pressure: [ ] P Plat: [ ] Static C: [ ] Static R: [ ] P/F Ratio: [ ] CARDIOVASCULAR: Follow hemodynamics. Titrate vasopressor to keep MAP >65 or systolic blood pressure >95mmHg DIPS: [ ] LINES: [ ] GI & NUTRITION: Continue nutritional support Aspirations precautions Prokinetic agents and laxatives as needed KIDNEYS & ELECTROLYTES: Strict monitoring of intake and output Daily weights Avoid nephrotoxic agents Monitor electrolytes and replace as needed Goal urine output of 30mL/hr or 0.5mL/kg/hr Urine output: [ ] Fluid Balance: [ ] ENDOCRINE: Maintain blood glucose between 100-180 at all times. Insulin sliding scale for blood glucose management INFECTIOUS DISEASE: Trend temperature. Dean-culture if febrile. Micro: [ ] Antibiotics: [ ] HEMATOLOGY & COAGULATION: Monitor H&H. Keep Hgb > 7 Transfuse 1 unit of PRBC for Hgb < 7 Transfuse 1 pack of platelets of platelets < 20, 000 Watch for any signs and symptoms of bleeding SKIN: Pressure ulcer prevention per facility protocol Rehab: PT/OT Prophylaxis: GI: [ ] DVT: [ ] Code Status: Full Resuscitation Disposition: [ ] Other: Total patient care time exceeds 35 minutes excluding all procedures. Case was discussed and seen with my supervising physician. The above plan was formulated and agreed upon. CHRISTINE HUNT Dec 29, 2024 12:58
[2024-12-29] MEDS: HYDROcodone/APAP 5/325 1 TAB TABLET PO PRN (13:16)
[2024-12-29 20:18] VITALS: O2SAT 98
[2024-12-29] MEDS: FAMOTIDINE 20MG TAB PO SCH (21:02)
[2024-12-30] VITALS: BP 137/68; PULSE 69; RESP 17; TEMP 98.6
[2024-12-30 04:00] VITALS: BP 129/77; PULSE 74; RESP 14; TEMP 98.4
[2024-12-30 08:00] VITALS: BP 136/67; PULSE 66; RESP 17; TEMP 98.1
--- NOTE | 2024-12-30 10:36 | HMCIMG ---
EXAMINATION: DUPLEX ULTRASOUND EXAMINATION OF THE BILATERAL CAROTID AND VERTEBRAL ARTERIES. CLINICAL HISTORY: ICA stenosis. COMPARISON: None provided. TECHNIQUE: Real-time ultrasound scan of the bilateral carotid and vertebral arteries, 2-D grayscale, with color Doppler flow and spectral waveform analysis. FINDINGS: Color and spectral Doppler interrogation of the carotid vessels on the right demonstrate peak systolic velocities as follows: CCA (Proximal and distal): 58 and 58 cm/s respectively. ECA: 55 cm/s. ICA (Proximal, mid, and distal): 55,115, and 78 cm/s respectively. Vertebral artery demonstrates antegrade flow: 35 cm/s. Right ICA/CCA ratio: 2.0 Peak systolic velocities on the left are as follows: CCA (Proximal and distal): 110 and 76 cm/s respectively. ECA: 42 cm/s. ICA (Proximal, mid, and distal): 71, 87, and 93 cm/s respectively. Vertebral artery demonstrates antegrade flow: 47 cm/s. Left ICA/CCA ratio: 1.2 Both the common carotid arteries and their branches reveal mild intimal thickening. The right internal carotid artery appears tortuous. IMPRESSION: Mild intimal thickening in the bilateral carotid arteries and their branches. Right ICA/CCA ratio is 2.0 suggesting 50% to 69% stenosis. Recommend CT/MR angiogram. /[place]
--- NOTE | 2024-12-30 10:39 | HMCIMG ---
EXAM: CT Cervical Spine Without IV Contrast. CLINICAL HISTORY: Cervical pain with radiculopathy. TECHNIQUE: Thin collimated axial CT images of the cervical spine were obtained, with sagittal and coronal reformatted images also submitted. A CT scan is done according to ALARA (As Low As Reasonably Achievable). CONTRAST: None. COMPARISON: Prior CT cervical spine dated 03 April 2024. FINDINGS: No acute fracture. Loss of cervical lordosis. Mild osteopenia. Normal vertebral body height. Degenerative reduction in disc space at C2-C3, C3-C4, C4-C5, C5-C6, and C6-C7 levels. Grade 1 anterolisthesis of C3 over C4. The surrounding soft tissues are unremarkable. Level by level, disease is present as follows: C1-C2: No osteoarthritis. C2-C3: Mild anterolisthesis of C2 over C3. Bilateral C3 uncinate process hypertrophy and facet arthropathy, moderate narrowing of the left neural foramina. Abutment of the left exiting C3 nerve root. No spinal canal stenosis. C3-C4: Degenerative reduction in disc space with anterior osteophyte. Minimal anterolisthesis of C3 over C4. Bilateral C4 uncinate process hypertrophy and facet arthropathy. Moderate narrowing of the bilateral neural foramina. Abutment of bilateral exiting C4 nerve root. No spinal canal stenosis. C4-C5: Degenerative reduction in disc space with anterior osteophyte. And bilateral C5 uncinate process hypertrophy and facet arthropathy. Moderate to severe narrowing of the bilateral neural foramina. Mild spinal canal stenosis. C5-C6: Degenerative reduction in disc space with anterior osteophyte and bilateral C6 uncinate process hypertrophy and 3 mm disc osteophyte complex bulge. Moderate narrowing of the bilateral neural foramina is left more than right. C6-C7: Degenerative reduction in disc space. Minimal retrolisthesis of C6 over C7 and bilateral C7 uncinate process hypertrophy and facet arthropathy. Moderate to severe narrowing of the right neural foramina and moderate narrowing of the left neural foramina. C7-T1: No disc bulge or herniation. No neural foraminal, lateral recess, or spinal canal stenosis. Subtle atherosclerotic calcification of the bilateral carotid bulbs. IMPRESSIONS: 1. No evidence of acute fracture. Normal vertebral body height. 2. Loss of cervical lordosis. Mild osteopenia.Degenerative reduction in disc space at C2-C3, C3-C4, C4-C5, C5-C6, and C6-C7 levels. Grade 1 anterolisthesis of C3 over C4. Moderate degenerative changes in the cervical spine as described. Compared to the prior CT scan, there is minimal anterolisthesis of C2 over C3 rest of the findings remain unchanged. /[place]
[2024-12-30 12:00] VITALS: BP 129/65; PULSE 61; RESP 17; TEMP 98
--- NOTE | 2024-12-30 14:10 | NUR ---
PT REQUESTING TO SPEAK TO ADMITTING PROVIDER OR AUTOMOTIVE MAINTENANCE TECHNICIAN DUE TO HER WAIT TIME IN THE ER AND PENDING HOSPITAL ROOM. PT WAS OFFERED HOSPITAL BED FOR COMFORT AND ADVISED CARDIOLOGY AND ADMITTING PROVIDER WOULD BE CONSULTED AND WOULD FOLLOW UP WITH HER. PT VERBALIZED UNDERSTANDING.
--- NOTE | 2024-12-30 14:28 | NUR ---
BENCHMARK PAGED TO COME AND SEE PATIENT.
--- NOTE | 2024-12-30 14:40 | NUR ---
DCP: HOME Sw met with pt and Germán Nassar [phone]. Prior to admission, pt reports she was very independent, able to drive self as needed, complete ADLS, home management and meal prep without assistance. Used no DME or in home care services. PCP is Radha Gonzalez and uses [facility] on [address] for rx needs. Pt and considering leaving AMA, requested to speak to charge nurse. Sw notified PARAM Henry charge nurse of pt request. Addendum: 12/30/24 at 1444 by ANA TOWNSEND Amended: Links added.
--- NOTE | 2024-12-30 15:18 | PN ---
[facility] PROGRESS NOTE Date Patient Seen: Dec 30, 2024 Time of Visit: 15:18 Supervising Physician: Dr. Jakub Ewing Primary Care Physician: [ ] Outpatient Specialists: [ ] Inpatient Consults: [facility] PROBLEM LIST: Chest pain and palpitations Headache Electrolyte derangements syndrome: Hypokalemia & Hypomagnesemia CHRONIC PROBLEM LIST: Chronic severe cervical & thoracic back pain Hypertension Hx: Diverticulitis s/p colon resection PLAN: Continuous telemetry monitoring Review and reconcile patient's home medications Continue DVT/GI prophylaxis Specialists from [facility] to assess patient to rule out palpitations were not dysrhythmia Discussed with patient other solutions options to help with severe cervical and spine pain A.m. labs INTERVAL HISTORY: Patient is a 74-year-old female that presented to the emergency department reporting severe neck pain, headache and chest palpitations. Patient states she reached out to her public address system mechanic, [facility] and she was advised to come to the emergency department. She has a past medical history for degenerative cervical osteoarthritis and scoliosis for which she sees Dr. Delatorre with pain management since 2012. She states that she has had injections in the past which have not provided any relief. And is currently being treated with hydrocodone for her pain. Patient states that she recently had a workup with [facility] an imaging studies were performed which she can not result called the facility. Review in our system do not show any type of recent scans. Patient has prior admissions for hypertensive emergencies which she states is related to her pain. Patient also has a history of severe diverticulitis with history of colon resections. She denies any abdominal complaints no nausea or vomiting. Patient with elevated systolics in the 170s at presentation. CT imaging brain revealed no bleeds. Chest x-ray was clear. Her labs stable, troponin normal and no EKG findings. Patient pending evaluation by [facility]. A dmitted for ongoing chest pain and ACS evaluation. 12/30-Patient seen in the ED [place]#4, assess during my rounding process, patient is awake alert oriented x3 moves all extremities well is accompanied by . Patient denies chest patient denies shortness or breath patient denies pain difference at rest or with movement laboratory values BNP of 23 troponin less than four EKG [address] segment elevation depression patient does report having palpations when when severe cervical back and neck pain starts. Patient has been areas doctors in the region surgeon neurosurgeon shelia not many interventions have well for her. Patient later during my assessment as needed both short long-term pain medications explained to the patient that that is something I could not. Nurse's aide came in during this has been and did the patient's vitals patient's vital signs were within historical limits EKG and telemetry monitoring monitor tonight reflect ST segment elevation or depression. Ask the patient what like both patient and spouse replied better weight and manage dream here cervical spine pain that the patient is endorsed. D a provider from [facility] the patient's cardiology group would like to come down quickly assess the patient is to rule out any dysrhythmia at the cause of her palpations. Patient is willing to wait. I explained to her that we will order some labs and continue to the telemetry monitoring. REVIEW OF SYSTEMS: 12 point ROS reviewed with patient. Pertinent positives mentioned above. Otherwise negative. PHYSICAL EXAM: GENERAL: alert, weak, awake oriented x 3 HEENT: EOMI, Sclera non icteric, moist mucosa NECK: Supple, no JVD, trachea midline LUNGS: Clear breath sounds bilaterally. No wheezes HEART: Regular rate and rhythm. Normal S1 and S2, without murmurs ABD: Abdomen soft, nontender. Bowel sounds present EXT: No clubbing cyanosis or edema NEURO: Alert and oriented to person, follows commands Vital Signs (last 8hr) Date Time Temp Pulse Resp B/P (MAP) Pulse Ox O2 Delivery O2 Flow Rate FiO2 12/30/24 12:00 98.1 61 17 129/65 98 Room Air 12/30/24 08:00 98.1 66 17 136/67 98 Room Air LABS: Hematology Labs: Test 12/29/24 09:21 Range/Units White Blood Count 8.9 4.8-10.8 K/uL Red Blood Count 4.43 4.00-5.50 MIL/uL Hemoglobin 13.7 12.0-16.0 g/dL Hematocrit 41.8 36-48 % Mean Corpuscular Volume 94.4 79-99 fL Mean Corpuscular Hemoglobin 30.9 27.0-33.0 pg Mean Corpuscular Hemoglobin Concent 32.8 32.0-36.0 g/dL Red Cell Distribution Width 12.7 11.0-15.5 % Platelet Count 276 130-400 K/uL Mean Platelet Volume 9.1 7.5-10.5 fL Immature Granulocyte % (Auto) 0.4 0-1 % Neutrophils (%) (Auto) 70.1 40.0-77.0 % Lymphocytes (%) (Auto) 20.9 L 21.0-51.0 % Monocytes (%) (Auto) 6.7 3.0-13.0 % Eosinophils (%) (Auto) 1.6 0.0-8.0 % Basophils (%) (Auto) 0.3 0.0-5.0 % Neutrophils # (Auto) 6.3 1.8-7.7 K/uL Lymphocytes # (Auto) 1.9 1.0-4.8 K/uL Monocytes # (Auto) 0.6 0.1-1.0 K/uL Eosinophils # (Auto) 0.14 0.00-0.70 K/uL Basophils # (Auto) 0.03 0.00-0.20 K/uL Absolute Immature Granulocyte (auto 0.04 0-1 K/uL Nucleated Red Blood Cells 0.0 0.0-0.19 % Chemistry Labs: Test 12/29/24 09:21 Range/Units Sodium Level 139 136-145 mmol/L Potassium Level 3.5 3.5-5.1 mmol/L Chloride Level 103 101-111 mmol/L Carbon Dioxide Level 29 21-32 mmol/L Blood Urea Nitrogen 11 7-18 mg/dL Creatinine 0.7 0.5-1.0 mg/dL Glomerular Filtration Rate Calc 90 >90 mL/min Random Glucose 105 70-105 mg/dL Total Calcium 9.4 8.5-10.1 mg/dL Magnesium Level 1.80 1.80-2.40 mg/dL Total Creatine Kinase 80 21-232 U/L Troponin I High Sensitivity < 4 L 4-50 ng/L B-Type Natriuretic Peptide 23 0-100 pg/mL Coagulation Labs: Test 12/29/24 09:21 Range/Units Prothrombin Time 10.5 9.6-11.6 SEC Prothromb Time International Ratio 0.99 0.85-1.15 Activated Partial Thromboplast Time 25.6 L 26.3-35.5 SEC DIAGNOSTICS / RADIOLOGY RESULTS: [ ] PLAN NEURO: Minimize central acting medications as possible. Maintain fall precautions, adequate lighting during the day PULMONARY: Supplemental 02 as needed. Maintain aspiration precautions at all times CARDIOVASCULAR: Follow hemodynamics. Vital signs per facility protocol GI & NUTRITION: Continue with nutritional support. Continue stool softeners and laxatives as needed. KIDNEYS & ELECTROLYTES: Strict monitoring of intake, output and overall fluid balance. Avoid nephrotoxic medications to the extent possible. Medications to be dosed according to renal function. Monitor electrolytes and replace as needed ENDOCRINE: Maintain blood glucose between 100-180 at all times. Hypoglycemia protocol in place INFECTIOUS DISEASE: Trend temperature, WBC and procalcitonin level Follow cultures, deescalate antibiotics as soon as possible. Panculture if new onset fever ONCOLOGY/HEMATOLOGY/COAGULATION: Monitor for s/s of bleeding Monitor hemoglobin, coagulation studies as needed SKIN: Pressure ulcer prevention per facility protocol Specialty mattress ORTHO/REHAB: Continue PT/OT Prophylaxis: Continue GI and DVT prophylaxis Code Status: Full Resuscitation Disposition: TBD Other: Total patient care time exceeds 35 minutes excluding all procedures. YURI LY NP Dec 30, 2024 15:18
--- NOTE | 2024-12-30 17:39 | NUR ---
PATIENT LEFT AMA. EDUCATED PATIENT ON LEAVING AGAINST MEDICAL ADVICE. PATIENT WAS PERSISTENT ON LEAVING, AND DID NOT WANT TO WAIT TO BE SEEN BY PHYSICIAN.
--- NOTE | 2024-12-31 17:57 | DS ---
BACK HAT CONDITIONER 12/30/24 AT 19:45 THE PATIENT CHOSE TO LEAVE THE EMERGENCY DEPARTMENT AMA. YURI LY NP Dec 31, 2024 17:57
== END 2024-12-30 17:30 | disposition left against medical advice (07) ==
LOC: EDH 08:48 → EDHIP 11:49
PROVIDERS: ADMIT Internal Medicine Pulmonary Disease; ATTEND Internal Medicine Pulmonary Disease
DX: R07.89 Other chest pain (principal); R00.2 Palpitations; E87.6 Hypokalemia; E83.42 Hypomagnesemia; I10 Essential (primary) hypertension; M41.9 Scoliosis, unspecified; G89.29 Other chronic pain; M54.2 Cervicalgia; M54.6 Pain in thoracic spine; R22.1 Localized swelling, mass and lump, neck; R51.9 Headache, unspecified; Z90.49 Acquired absence of other specified parts of digestive tract; Z90.710 Acquired absence of both cervix and uterus; Z79.899 Other long term (current) drug therapy; Z98.890 Other specified postprocedural states
CPT/HCPCS: 96374; 99285; 82550; 83735; 84484; 80048; 83880; 85025; 85610; 85730; 36415; 71045; 70450; 72125; 93880; G0378 ×30; J1885

== ENCOUNTER → 2025-03-26 | Outpatient (CLI) | payer MEDICARE ==
--- NOTE | 2025-03-27 05:28 | HMCIMG ---
EXAM: CR Soft Tissue Neck, 5 View. CLINICAL HISTORY: NECK PAIN, FLEX AND EXTENSION COMPARISON: None provided. FINDINGS: SOFT TISSUES: Unremarkable. No retropharyngeal soft tissue swelling or gas. EPIGLOTTIS: No epiglottic thickening. BONES: No acute osseous abnormality. Severe spondylotic changes with degenerative disc disease from C4 to C6 level, with loss of intervening disc space IMPRESSION: No acute pathology evident on soft tissue plain films of the neck. Severe spondylotic changes in the cervical spine with degenerative disc disease from C4 to C6 level, with loss of intervening disc space /[place]
--- NOTE | 2025-03-27 05:28 | HMCIMG ---
EXAM: CR Lumbar Spine, 4 View. CLINICAL HISTORY: LBP, FLEX AND EXRENSION COMPARISON: None provided. FINDINGS: BONES: No acute fracture or aggressive appearing osseous lesion. ALIGNMENT: Alignment is within normal limits. No significant scoliosis. No significant change in alignment on flexion and extension views. DISCS / DEGENERATIVE CHANGES: Spondylotic changes with reduced L4-L5 and L5-S1 disc spaces. SOFT TISSUES: The soft tissues are unremarkable. IMPRESSION: No acute lumbar spine abnormality evident. Spondylotic changes with reduced L4-L5 and L5-S1 disc spaces. /[place]
== END | disposition home or self-care (01) ==
LOC: RAH 11:19
PROVIDERS: ATTEND Family Medicine
DX: M47.812 Spondylosis without myelopathy or radiculopathy, cervical region (principal); M47.817 Spondylosis without myelopathy or radiculopathy, lumbosacral region; M51.372 Other intervertebral disc degeneration, lumbosacral region with discogenic back pain and lower extremity pain; M50.321 Other cervical disc degeneration at C4-C5 level; M54.51 Vertebrogenic low back pain; M50.322 Other cervical disc degeneration at C5-C6 level; M99.05 Segmental and somatic dysfunction of pelvic region; M43.12 Spondylolisthesis, cervical region
CPT/HCPCS: 72050; 72114

== ENCOUNTER 2025-04-16 16:22 | Emergency (ER) | payer MEDICARE ==
[~2025-04-16] VITALS: Ht 149.9 cm; Wt 56.7 kg
[2025-04-16 16:47] LABS: NUCLEATED RED BLOOD CELLS 0.0 % (0.0-0.19); PLATELET COUNT (AUTO) 300.0 K/uL (130-400); RED BLOOD CELL COUNT(AUTO) 4.15 MIL/uL (4.00-5.50); RED CELL DISTRIBUTION WIDTH 13.2 % (11.0-15.5); WHITE BLOOD COUNT (AUTO) 7.6 K/uL (4.8-10.8)
[2025-04-16 16:58] LABS: CREATININE 0.9 mg/dL (0.5-1.0); GLOMERULAR FILTR. RATE CALC 66.0 mL/min (>90); GLUCOSE,RANDOM 159.0 mg/dL (70-105); SODIUM SERUM 137.0 mmol/L (136-145); UREA NITROGEN, BLOOD 18.0 mg/dL (7-18)
--- NOTE | 2025-04-16 16:58 | EKG ---
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
--- NOTE | 2025-04-16 17:30 | ERN ---
General Chief Complaint: Chest Pain Stated Complaint: CHEST PAIN Time Seen by MD: 16:23 Source: EMS History of Present Illness Initial Comments This patient, 74-year-old female, was brought by EMS to the ED with complaint of left-sided chest pain. Patient states that the pain began several hours ago and she describes it as mild in intensity which does not change in severity with breathing. She denies shortness of breath or nausea. There is tenderness with palpation noted on left upper chest. Timing/Duration: 1-3 hours Associated Symptoms: chest pain Allergies: Coded Allergies: levofloxacin (Unverified Allergy, Unknown, 08/20/23) Home Meds Active Scripts Eszopiclone (Eszopiclone) 2 Mg Tablet, 1 TAB PO HSPRN PRN for sleep for 30 Days, #30 TAB 0 Refills Prov:NEVA KRISHNAMURTHY MD 06/05/24 Lisinopril (Lisinopril) 10 Mg Tablet, 1 TAB PO DAILY for 30 Days, #30 TAB 0 Refills Prov:NEVA KRISHNAMURTHY MD 06/05/24 Losartan Potassium (Cozaar) 25 Mg Tablet, 25 MG PO BID for 30 Days, #60 TAB Prov:LOLIS KEITH BLOCKER AND SEWER 08/21/23 Cephalexin (Cephalexin) 500 Mg Capsule, 500 MG PO BID for 7 Days, #14 CAP Prov:LOLIS KEITH BLOCKER AND SEWER 08/21/23 Reported Medications Timolol Maleate/Pf (Timolol Maleate 0.5% Eye Drop) 0.5 % Droperette, 1 EACH OP HS, DROP 08/20/23 Cyclosporine (Cyclosporine) 0.05 % Droperette, 1 EACH OP BID, DROP 08/20/23 Lidocaine (Lidocaine) 5 % Adh..patch, 1 EACH TP [id number] PRN for PAIN LEVEL 1 TO 5, ADH.PATCH 08/20/23 Hydrocodone/Acetaminophen (Hydrocodon-Acetaminophn 10-325) 10 Mg-325 Mg Tablet, 1 EACH PO BID, TAB 08/20/23 Levothyroxine Sodium (Levothyroxine) 25 Mcg Capsule, 25 MCG PO DAILY, CAP 08/20/23 Past Medical History Past Medical History: Arthritis, Hypertension Medical History Other: osteapenia, osteoarthritis, chronic back pain Past Surgical History: Appendectomy, Hysterectomy, Cholecystectomy Surgical History Other: COLON RESECTION Family History Family History: Negative Social History Social History: Negative Female( History) History: Not Applicable Constitutional: (-) chills, (-) diaphoresis, (-) fever, (-) malaise, (-) weakness, (-) other documentation EENTM: (-) eye pain, (-) blurred vision, (-) tearing, (-) double vision, (-) ear pain, (-) ear discharge, (-) nose pain, (-) nose congestion, (-) throat pain, (-) Throat swelling, (-) mouth pain, (-) tooth pain, (-) mouth swelling, (-) other documentation Respiratory: (-) cough, (-) orthopnea, (-) short of breath, (-) stridor, (-) wheezing, (-) other documentation Cardiovascular: (+) chest pain; (-) edema, (-) palpitations, (-) syncope, (-) dyspnea on exertion, (-) other documentation Gastrointestinal/Abdominal: (-) nausea, (-) vomiting, (-) diarrhea, (-) abdominal pain, (-) abdominal distention, (-) constipation, (-) rectal bleeding, (-) dark stool/melena, (-) other documentation Genitourinary: (-) vaginal discharge, (-) vaginal bleeding, (-) dysuria, (-) frequency, (-) hematuria, (-) pain, (-) other documentation Musculoskeletal: (+) other documentation (Pain with deep palpation in left upper chest); (-) Neck pain, (-) back pain, (-) Flank Pain, (-) joint pain, (-) joint swelling, (-) muscle pain, (-) muscle stiffness, (-) gout Skin: (-) laceration, (-) contusion, (-) abrasion, (-) abscess, (-) rash, (-) change in color, (-) change in hair, (-) change in nails, (-) diaphoresis, (-) dryness, (-) other documentation Neuro: (-) altered mental status, (-) headache, (-) syncope, (-) paralysis, (-) numbness, (-) seizure, (-) pre-existing deficit, (-) tremors, (-) weakness, (-) dizziness, (-) slurred speech, (-) vertigo, (-) other documentation Psych: (-) depression, (-) suicidal ideation, (-) anxiety, (-) emotional problems, (-) auditory hallucinations, (-) visual hallucinations Physical Exam General Appearance: (+) no apparent distress Orientation: (+) alert, (+) oriented x 3 Head/Face Trauma: No Ear, Nose, Throat: (+) hearing grossly normal, (+) normal ENT inspection, (+) moist mucous membraine, (+) normal pharynx Neck: (+) normal inspection, (+) supple, (+) full range of motion Respiratory: (+) chest non-tender, (+) lungs clear, (+) well ventilated Heart: (+) regular, (+) no gallop Vascular: (+) no edema Gastrointestinal: (+) soft, (+) non-tender, (+) no organomegaly Back: (+) normal inspection, (+) no CVA tenderness Extremities: (+) normal range of motion, (+) non-tender, (+) normal inspection Neurologic/Psychiatric: (+) normal speech, (+) no motor defecits, (+) no sensory deficits Skin: (+) normal color Results Laboratory and Microbiology Lab and Micro Result Laboratory Tests Test 04/16/25 16:41 04/16/25 17:35 04/16/25 17:50 White Blood Count 7.6 K/uL (4.8-10.8) Red Blood Count 4.15 MIL/uL (4.00-5.50) Hemoglobin 12.8 g/dL (12.0-16.0) Hematocrit 39.4 % (36-48) Mean Corpuscular Volume 94.9 fL (79-99) Mean Corpuscular Hemoglobin 30.8 pg (27.0-33.0) Mean Corpuscular Hemoglobin Concent 32.5 g/dL (32.0-36.0) Red Cell Distribution Width 13.2 % (11.0-15.5) Platelet Count 300 K/uL (130-400) Mean Platelet Volume 9.0 fL (7.5-10.5) Nucleated Red Blood Cells 0.0 % (0.0-0.19) Sodium Level 137 mmol/L (136-145) Potassium Level 4.0 mmol/L (3.5-5.1) Chloride Level 102 mmol/L (101-111) Carbon Dioxide Level 29 mmol/L (21-32) Blood Urea Nitrogen 18 mg/dL (7-18) Creatinine 0.9 mg/dL (0.5-1.0) Glomerular Filtration Rate Calc 66 mL/min (>90) Random Glucose 159 mg/dL (70-105) H Total Calcium 9.2 mg/dL (8.5-10.1) Troponin I High Sensitivity 5 ng/L (4-50) 7 ng/L (4-50) Urine Color COLORLESS (YELLOW) Urine Appearance CLEAR (CLEAR) Urine pH 6.0 (5.0-8.0) Urine Specific [place] 1.006 (1.001-1.031) Urine Protein NEGATIVE mg/dL (NEGATIVE) Urine Glucose (UA) NEGATIVE mg/dL (NEGATIVE) Urine Ketones NEGATIVE mg/dL (NEGATIVE) Urine Occult Blood NEGATIVE (NEGATIVE) Urine Nitrate NEGATIVE (NEGATIVE) Urine Bilirubin NEGATIVE mg/dL (NEGATIVE) Urine Urobilinogen 0.2 mg/dL (0.2-1.0) Urine Leukocyte Esterase NEGATIVE [place]/uL Urine Opiates Screen NEGATIVE (NEGATIVE) Urine Barbiturates Screen NEGATIVE (NEGATIVE) Urine Phencyclidine Screen NEGATIVE (NEGATIVE) Urine Amphetamines Screen NEGATIVE (NEGATIVE) Urine Benzodiazepines Screen NEGATIVE (NEGATIVE) Urine Cocaine Screen NEGATIVE (NEGATIVE) Urine Marijuana (THC) Screen POSITIVE (NEGATIVE) H EKG/XRAY/US/CT/MRI EKG Comment PROCEDURE: EKG - 12 LEAD EKG TRACING- TECHNICAL [facility] Test Date: 2025-04-16 Test Time: 16:49:38 Pat Name: NELLIE HOU Department: [facility] Room: Gender: F 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 X-RAY Comment PATIENT: NELLIE HOU MR#: [id number] : 1950 SEX: F AGE: 74 LOCATION: [facility] ORDER 31 STATUS: REG ER REPORT#: [id number] SERVICE 29 REASON: Chest pain ORDERING PHYSICIAN: MAGGIE JAMISON MD PROCEDURE: CXR1VW - CHEST 1VW EXAM: CR Chest, 1 View. CLINICAL HISTORY: Chest pain COMPARISON: None provided. FINDINGS: LUNGS: The lungs show no infiltrate or other acute finding. PLEURAL SPACES: No pleural effusion or pneumothorax. MEDIASTINUM: Cardiac size and mediastinal contours within normal limits. BONES: No aggressive appearing osseous lesion seen. IMPRESSION: No acute cardiopulmonary pathology is evident. /[place] DICTATED BY: RAMONE FULTON Jr., MD DATE: 04/16/251846 ELECTRONICALLY SIGNED BY: RAMONE FULTON Jr., MD DATE: 04/16/251846 [facility] MDM: Differential diagnosis: Musculoskeletal chest pain, anxiety This patient, 74-year-old female, presented with complain of left-sided chest pain. Left Upper Chest was tender to palpation. * CBC, BMP, EKG, troponin and chest x-ray were taken. * EKG was negative for any ST elevation. * Repeat troponins were unremarkable. * Chest x-ray was unremarkable for any acute cardiopulmonary pathology. * She was given a dose of Toradol. * Patient stated that her pain has resolved. * Patient's condition is stable. She is vitally stable. She states that her pain has resolved. She is being discharged to home with instructions to follow up with her primary care physician. ED Course Orders Procedure Category Date Status Time 12 Lead Ekg Tracing- EKG 04/16/25 Complete Technical 16:23 Cbc Without LAB 04/16/25 Complete Differential 16:30 Basic Metabolic Panel LAB 04/16/25 Complete 16:30 Troponin I High LAB 04/16/25 Complete Sensitivity 16:30 Chest 1vw RAD 04/16/25 Resulted 16:30 Urinalysis Profile LAB 04/16/25 Complete 16:30 Drug Screen Urine LAB 04/16/25 Complete 16:30 Troponin I High LAB 04/16/25 Complete Sensitivity 17:16 Ketorolac PHA 04/16/25 Complete Tromethamine 15mg/Ml 18:30 Current Medications Medications (Trade) Dose Ordered Sig/Fidel Route PRN Reason Start Time Stop Time Status Last Admin Dose Admin Ketorolac Tromethamine (toRADol) 15 mg ONCE ONCE IV 04/16/25 18:30 04/16/25 18:31 DC 04/16/25 18:33 Vital Signs Date Time Temp Pulse Resp B/P (MAP) Pulse Ox O2 Delivery O2 Flow Rate FiO2 04/16/25 18:33 97.9 65 18 131/68 98 Room Air* 0 21 04/16/25 17:40 97.9 68 18 128/64 98 Room Air* 0 21 04/16/25 16:23 97.9 88 20 170/89 97 Room Air DX & DISP Disposition: Discharge Departure Impression: Primary Impression: Musculoskeletal chest pain Critical Time: 45 minutes Condition: Stable Additional Instructions: You have been reviewed in the emergency department at [facility] after presenting with chest pain. After considering your history, your risk factors, your EKG and your blood test troponins, have been found to be at very low risk less than (1 in 100) of having a major adverse cardiac event (like heart attack) in the near future. In the " low risk" group, the risks of doing further tests and treatment as the inpatient outweighs the benefits. In many patients in the low risk group for the test of any sort or unnecessary, however he should discuss this further with his general practitioner who will understand the medical and personal backgrounds better. Because we have never declared you" no risk" we would suggest. 1 returning for medical review if you have further episodes of chest pain/arm pain or other concerning symptoms like dizziness, collapse, palpitations or shortness of breath. 2. Following up with your local doctor who will consider the need for further testing and will also ensure that any modifiable risk factors you may have for heart disease are optimally managed. Patient will be discharged in stable condition at the moment discharge patient states , no chest pain Referrals: FREIDA ADAMS MD (PCP) Time of Disposition: 18:50 I have reviewed the case, and I agree with, Diagnosis and Plan I have examined patient, & reviewed all documents, & agreed W/ the Diagnosis, and Plan MAGGIE JAMISON MD Apr 16, 2025 17:29 DIALLO JACOBSON MD Apr 16, 2025 18:50
[2025-04-16 17:42] LABS: APPEARANCE,URINE CLEAR (CLEAR); GLUCOSE, URINE (UA) NEGATIVE (NEGATIVE); LEUKOCYTE ESTERASE ,URINE NEGATIVE Leu/uL (NEGATIVE); NITRATE,URINE NEGATIVE (NEGATIVE); OCCULT BLOOD,URINE NEGATIVE (NEGATIVE)
[2025-04-16 17:43] LABS: ADD UA MICROSCOPIC NO
--- NOTE | 2025-04-16 17:48 | HMCIMG ---
EXAM: CR Chest, 1 View. CLINICAL HISTORY: Chest pain COMPARISON: None provided. FINDINGS: LUNGS: The lungs show no infiltrate or other acute finding. PLEURAL SPACES: No pleural effusion or pneumothorax. MEDIASTINUM: Cardiac size and mediastinal contours within normal limits. BONES: No aggressive appearing osseous lesion seen. IMPRESSION: No acute cardiopulmonary pathology is evident. /[place]
[2025-04-16 17:50] LABS: AMPHET/METH SCREEN,URINE NEGATIVE (NEGATIVE); BARBITURATE SCREEN, URINE NEGATIVE (NEGATIVE); CANNABINOID SCREEN,URINE POSITIVE (NEGATIVE); COCAINE SCREEN,URINE NEGATIVE (NEGATIVE)
[2025-04-16 18:33] VITALS: BP 131/68; PULSE 65; RESP 18; TEMP 97.9; O2SAT 98
== END 2025-04-16 18:55 | disposition home or self-care (01) ==
LOC: EDH 16:22
DX: R07.89 Other chest pain (principal); I10 Essential (primary) hypertension; M19.90 Unspecified osteoarthritis, unspecified site; Z88.1 Allergy status to other antibiotic agents; Z79.890 Hormone replacement therapy; Z79.621 Long term (current) use of calcineurin inhibitor; Z79.891 Long term (current) use of opiate analgesic; Z79.899 Other long term (current) drug therapy; Z90.49 Acquired absence of other specified parts of digestive tract; Z90.710 Acquired absence of both cervix and uterus
CPT/HCPCS: 99285; 71045; 96374; 84484 ×2; 80048; 80305; 85027; 36415; 93005; 81003; J1885

== ENCOUNTER 2025-04-23 12:37 | Emergency (ER) | payer MEDICARE ==
[~2025-04-23] VITALS: Ht 147.3 cm; Wt 54.7 kg
--- NOTE | 2025-04-23 13:02 | EKG ---
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
--- NOTE | 2025-04-23 13:07 | ERN ---
General Chief Complaint: Palpitations Stated Complaint: PALPITATIONS Time Seen by MD: 12:42 Source: patient History of Present Illness Initial Comments Patient is a 74-year-old female coming in complaining of abnormal sensation. Per patient she feels something warm confirm her stomach all the way up to her chest and states feels her heart racing after that. She states that she had a similar episode in the past and was cleared. Allergies: Coded Allergies: levofloxacin (Unverified Allergy, Unknown, 08/20/23) Home Meds Active Scripts Eszopiclone (Eszopiclone) 2 Mg Tablet, 1 TAB PO HSPRN PRN for sleep for 30 Days, #30 TAB 0 Refills Prov:NEVA KRISHNAMURTHY MD 06/05/24 Lisinopril (Lisinopril) 10 Mg Tablet, 1 TAB PO DAILY for 30 Days, #30 TAB 0 Refills Prov:NEVA KRISHNAMURTHY MD 06/05/24 Losartan Potassium (Cozaar) 25 Mg Tablet, 25 MG PO BID for 30 Days, #60 TAB Prov:LOLIS KEITH INSIGHT LEADER 08/21/23 Cephalexin (Cephalexin) 500 Mg Capsule, 500 MG PO BID for 7 Days, #14 CAP Prov:LOLIS KEITH INSIGHT LEADER 08/21/23 Reported Medications Timolol Maleate/Pf (Timolol Maleate 0.5% Eye Drop) 0.5 % Droperette, 1 EACH OP HS, DROP 08/20/23 Cyclosporine (Cyclosporine) 0.05 % Droperette, 1 EACH OP BID, DROP 08/20/23 Lidocaine (Lidocaine) 5 % Adh..patch, 1 EACH TP [id number] PRN for PAIN LEVEL 1 TO 5, ADH.PATCH 08/20/23 Hydrocodone/Acetaminophen (Hydrocodon-Acetaminophn 10-325) 10 Mg-325 Mg Tablet, 1 EACH PO BID, TAB 08/20/23 Levothyroxine Sodium (Levothyroxine) 25 Mcg Capsule, 25 MCG PO DAILY, CAP 08/20/23 Past Medical History Past Medical History: Hypertension Medical History Other: osteapenia, osteoarthritis, chronic back pain Past Surgical History: Appendectomy, Cholecystectomy Surgical History Other: COLONOSCOPY Family History Family History: Negative Social History Social History: Negative Female( History) History: Not Applicable ROS Dictation CONSTITUTIONAL: No chills, no fever, no weakness, no diaphoresis, no malaise. HEAD/FACE: No signs of trauma. EENT: No eye pain, no blurred vision, no tearing, no double vision, no ear pain, no ear discharge, no nose pain, no nasal congestion, no throat pain, no throat swelling, no mouth pain. RESPIRATORY: No cough, no orthopnea, no SOB, no stridor, no wheezing. CARDIOVASCULAR: No chest pain, no edema, no palpitations, no syncope. GASTROINTESTINAL/ABDOMINAL: No abdominal pain, no constipation, no diarrhea, no nausea, no vomiting. GENITOURINARY: No abnormal discharge, no dysuria, no frequent urination, no hematuria. No complaints of pain in the genitals. MUSCULOSKELETAL: No back pain, no gout, no joint pain, no joint swelling, no muscle pain, no muscle stiffness, no neck pain. INTEGUMENTARY: No change in color, no change in hair/nails, no dryness, no lesion, no lumps, no rash. NEUROLOGICAL/PSYCH: No anxiety, not depressed, no emotional problem, no headache, no numbness, no pre-existing deficit, no history of seizures, no tremors, no weakness. HEMATOLOGIC/LYMPHATIC: Not anemic, no history of blood clots, no apparent bleeding, no bruising, glands not swollen. All Systems Negative, Except as Noted. Physical Exam Physical Exam Dictation VITAL SIGNS: Reviewed. GENERAL APPEARANCE: Alert, oriented x3, no acute distress, obese. HEAD AND FACE: Non-traumatic. EYES: PERRL, pink conjunctivas, eyelid no trauma, anterior chamber clear. EARS: Pinnas intact and no signs of trauma or erythema. Ear canals clear and no discharge. TMs no erythema. NOSE: No discharge, no bleeding. OROPHARYNX: Mouth normal, teeth no caries, tongue pink. Pharynx clear, no erythema. Tonsils no exudates, no abscesses noted. Mucous membrane moist. NECK: Supple, non-tender, no thyromegaly, no masses, no JVD, no bruits. BREAST: Deferred. CHEST: No tenderness, no crepitus, no paradoxical movement, no retractions. LUNGS: Clear, well-ventilated, symmetric, no rales, no wheezing, no rhonchi, no stridor, good breath sounds bilaterally. HEART: Regular rate, regular rhythm, no murmur, no gallops. VASCULAR: No peripheral edema. ABDOMEN: Soft, positive bowel sounds, nondistended, no guarding, nontender, no rebound, no masses no hepatomegaly, no splenomegaly, no Patel's sign, no hernias. RECTAL: Deferred. GENITAL: Deferred. NEUROLOGICAL: Normal speech, gross motor function intact, gross sensory function intact. MUSCULOSKELETAL: Neck nontender, full range of motion, back nontender, full range of motion. EXTREMITIES: Nontender, full range of motion. SKIN: Color pink, dry, no turgor, no rash, no lacerations, no abrasions, no contusions. LYMPHATICS: Deferred. Results Laboratory and Microbiology Lab and Micro Result Laboratory Tests Test 04/23/25 13:24 04/23/25 14:11 White Blood Count 6.7 K/uL (4.8-10.8) Red Blood Count 4.52 MIL/uL (4.00-5.50) Hemoglobin 13.7 g/dL (12.0-16.0) Hematocrit 41.8 % (36-48) Mean Corpuscular Volume 92.5 fL (79-99) Mean Corpuscular Hemoglobin 30.3 pg (27.0-33.0) Mean Corpuscular Hemoglobin Concent 32.8 g/dL (32.0-36.0) Red Cell Distribution Width 13.2 % (11.0-15.5) Platelet Count 284 K/uL (130-400) Mean Platelet Volume 9.7 fL (7.5-10.5) Immature Granulocyte % (Auto) 0.3 % (0-1) Neutrophils (%) (Auto) 70.2 % (40.0-77.0) Lymphocytes (%) (Auto) 20.6 % (21.0-51.0) L Monocytes (%) (Auto) 7.6 % (3.0-13.0) Eosinophils (%) (Auto) 1.0 % (0.0-8.0) Basophils (%) (Auto) 0.3 % (0.0-5.0) Neutrophils # (Auto) 4.7 K/uL (1.8-7.7) Lymphocytes # (Auto) 1.4 K/uL (1.0-4.8) Monocytes # (Auto) 0.5 K/uL (0.1-1.0) Eosinophils # (Auto) 0.07 K/uL (0.00-0.70) Basophils # (Auto) 0.02 K/uL (0.00-0.20) Absolute Immature Granulocyte (auto 0.02 K/uL (0-1) Nucleated Red Blood Cells 0.0 % (0.0-0.19) Sodium Level 141 mmol/L (136-145) Potassium Level 3.9 mmol/L (3.5-5.1) Chloride Level 103 mmol/L (101-111) Carbon Dioxide Level 27 mmol/L (21-32) Blood Urea Nitrogen 12 mg/dL (7-18) Creatinine 0.8 mg/dL (0.5-1.0) Glomerular Filtration Rate Calc 76 mL/min (>90) Random Glucose 97 mg/dL (70-105) Total Calcium 9.9 mg/dL (8.5-10.1) Troponin I High Sensitivity 5 ng/L (4-50) 5 ng/L (4-50) Labs Reviewed?: Yes EKG/XRAY/US/CT/MRI EKG Comment Date 04/23/2025 time 12:31 p.m. Ventricular rate 74 Sinus rhythm [place] [address] wave elevation or depression MDM MDM: Differential diagnosis: Anxiety, hypertension, GERD, Rationale: Tests considered and ordered secondary to shared decision making include: Previous outside records reviewed: Old ER visits. Risk of complication and/or morbidity or mortality of patient management: None Medications-Per medication reconciliation Need for hospitalization: Patient does not meet criteria for hospitalization. Need for emergency major/minor surgery: No Patient is a 74-year-old female coming in complaining of burning sensation in his in his tested making her have elevated blood pressure and increased heart rate. She states that she has had multiple of these episodes and states that she has been evaluated several ERs and by hhas. Cardiac workup again was negative patient received Vistaril states that she feels much better and her initial presentation has subsided. Patient will be discharged in stable condition with a diagnosis of anxiety. Medication will be provided for symptomatic relief. ED Course Orders Procedure Category Date Status Time Cbc With Differential LAB 04/23/25 Complete 12:42 Chest 1vw RAD 04/23/25 Resulted 12:42 12 Lead Ekg Tracing- EKG 04/23/25 Complete Technical 12:42 Troponin I High LAB 04/23/25 Complete Sensitivity 12:42 Basic Metabolic Panel LAB 04/23/25 Complete 12:42 Hydroxyzine 50mg Vial PHA 04/23/25 Complete (Atarax 50mg Inj) 13:52 Troponin I High LAB 04/23/25 Complete Sensitivity 14:01 Current Medications Medications (Trade) Dose Ordered Sig/Fidel Route PRN Reason Start Time Stop Time Status Last Admin Dose Admin Hydroxyzine HCl (ATArax 50MG INJ) 25 mg ONCE STAT IM 04/23/25 13:52 04/23/25 13:55 DC 04/23/25 14:25 Vital Signs Date Time Temp Pulse Resp B/P (MAP) Pulse Ox O2 Delivery O2 Flow Rate FiO2 04/23/25 14:20 98.8 62 15 128/68 98 Room Air* 0 21 04/23/25 12:59 98.8 69 20 177/77 99 Room Air* 0 21 04/23/25 12:40 97.0 80 18 201/89 97 0 DX & DISP Disposition: Discharge Departure Impression: Primary Impression: Anxiety Condition: Stable Scripts Hydroxyzine HCl (Hydroxyzine HCl) 10 Mg Tablet 1 TAB PO BID for anxiety for 7 Days, #14 TAB 0 Refills Prov: DIALLO JACOBSON MD 04/23/25 Additional Instructions: FOLLOW-UP WITH PRIMARY CARE PROVIDER IN 1 TO 2 DAYS. TAKE MEDICATIONS DIRECTED HERE IN THE EMERGENCY ROOM. OKAY TO CONTINUE HOME MEDICATIONS UNLESS OTHERWISE DISCUSSED DURING YOUR VISIT IN THE EMERGENCY ROOM TODAY. RETURN TO YOUR NEAREST EMERGENCY ROOM IF SYMPTOMS WORSEN OR IF THERE IS NO IMPROVEMENT. CALL 911 IF YOU NEED IMMEDIATE ASSISTANCE. TAKE TYLENOL [id number] NEEDED AND IF NO CONTRAINDICATIONS ARE PRESENT. INCREASE ORAL HYDRATION. A WOUND CULTURE OR URINE CULTURE WAS ORDERED HERE IN THE EMERGENCY ROOM DEPARTMENT PLEASE FOLLOW-UP WITH PRIMARY CARE PROVIDER AND ADVISE THEM TO GET REPORTS FROM OUR FACILITY. IF YOU HAD ANY SULTANA WRAP/SPLINTS THAT WERE APPLIED HERE, PLEASE DO NOT REMOVE THEM UNTIL YOU SEE YOUR PRIMARY CARE OR SPECIALTY. Referrals: Referrals: FREIDA ADAMS MD (PCP) Time of Disposition: 15:16 DIALLO JACOBSON MD Apr 23, 2025 13:07
[2025-04-23 13:32] LABS: IMMATURE GRANULOCYTE ABSOLUTE 0.02 K/uL (0-1); NUCLEATED RED BLOOD CELLS 0.0 % (0.0-0.19); PLATELET COUNT (AUTO) 284 K/uL (130-400); RED BLOOD CELL COUNT(AUTO) 4.52 MIL/uL (4.00-5.50); RED CELL DISTRIBUTION WIDTH 13.2 % (11.0-15.5); WHITE BLOOD COUNT (AUTO) 6.7 K/uL (4.8-10.8)
[2025-04-23 13:46] LABS: CREATININE 0.8 mg/dL (0.5-1.0); GLOMERULAR FILTR. RATE CALC 76.0 mL/min (>90); GLUCOSE,RANDOM 97.0 mg/dL (70-105); SODIUM SERUM 141.0 mmol/L (136-145); UREA NITROGEN, BLOOD 12.0 mg/dL (7-18)
--- NOTE | 2025-04-23 14:40 | HMCIMG ---
EXAM: CR Chest, 1 View. CLINICAL HISTORY: cp COMPARISON: 04/16 16:46 EST FINDINGS: LUNGS: There is no mass, infiltrate, or acute pulmonary abnormality. PLEURAL SPACES: No evidence of pleural effusion or pneumothorax. MEDIASTINUM: Cardiac size and mediastinal contours within normal limits. BONES: No aggressive appearing osseous lesion seen. IMPRESSION: No acute cardiopulmonary pathology is evident. /[place]
[2025-04-23 15:33] VITALS: BP 127/56; PULSE 74; RESP 13; TEMP 98.5; O2SAT 97
--- NOTE | 2025-04-23 15:41 | NUR ---
DC PATIENT WAS DC'D BY DR INDIRA Keller DC'D PATIENTS IV WITH CATH STILL INTACT AND APPLIED 2X2 GAUZE WITH COBAN I EXPLAINED TO PATIENT TO FOLLOW UP WITH PCP, PROVIDED INFO BASED ON DIAGNOSIS, PRESCRIPTIONS AND ANSWERED ANY FOLLOW UP QUESTIONS PATIENT WAS TAKEN OUT OF ED BY WHEELCHAIR , ACCOMPANIED BY , NO COMPLICATIONS
== END 2025-04-23 15:40 | disposition home or self-care (01) ==
LOC: EDH 12:37
DX: F41.9 Anxiety disorder, unspecified (principal); I10 Essential (primary) hypertension; M19.90 Unspecified osteoarthritis, unspecified site; Z79.621 Long term (current) use of calcineurin inhibitor; Z79.890 Hormone replacement therapy; Z79.891 Long term (current) use of opiate analgesic; Z79.899 Other long term (current) drug therapy; Z88.1 Allergy status to other antibiotic agents; Z90.49 Acquired absence of other specified parts of digestive tract
CPT/HCPCS: 99285; 71045; 84484 ×2; 80048; 85025; 36415; 96372; 93005; J3410

== ENCOUNTER → 2025-05-07 | Outpatient (CLI) | payer MEDICARE ==
[~2025-05-07] MED LIST changes: +HYDR-3830 PO
--- NOTE | 2025-05-07 22:39 | HMCIMG ---
EXAM: MRI BRAIN WITHOUT CONTRAST CLINICAL INDICATION: Transient cerebral ischemic attack (TIA), unspecified. TECHNIQUE: Multiplanar, multisequence MRI of the brain was performed without intravenous contrast. COMPARISON: Prior CT scan of the head without contrast dated December 29, 2024. FINDINGS: Brain Parenchyma: There is prominence of the cerebral sulci and basal cisterns with associated ex vacuo dilatation of the ventricular system, consistent with age-appropriate cerebral volume loss. There is moderate, diffuse periventricular and deep white matter T2/FLAIR hyperintensity, compatible with chronic small vessel ischemic changes, Fazekas grade II. No areas of restricted diffusion are identified to suggest acute infarction. No focal parenchymal hemorrhage is seen. No abnormal susceptibility artifacts are identified on gradient-echo sequences. Ventricular System and CSF Spaces: The ventricles are mildly enlarged in proportion to the degree of cerebral atrophy. The basal cisterns are patent. Intracranial Vasculature: Normal flow voids are preserved within the major intracranial arterial and venous structures. Orbits: Bilateral pseudophakia is noted. Extra-axial Spaces: No extra-axial fluid collection is identified. Osseous Structures and Scalp: The visualized calvarium and scalp soft tissues are unremarkable. IMPRESSION: * No acute intracranial abnormality. Specifically, no evidence of acute infarction, intracranial hemorrhage, or mass effect. * Moderate chronic microvascular ischemic changes involving the periventricular and deep white matter, Fazekas grade II. * Age-appropriate cerebral volume loss with ex vacuo ventricular dilatation. * No interval change compared with the prior CT scan of the head dated December 29, 2024. /[place]
== END | disposition home or self-care (01) ==
LOC: RAH 12:28
PROVIDERS: ATTEND Family Medicine
DX: I67.82 Cerebral ischemia (principal); G45.9 Transient cerebral ischemic attack, unspecified; I67.2 Cerebral atherosclerosis; Z96.1 Presence of intraocular lens
CPT/HCPCS: 70551